=== PATIENT | female | born 1960 | race Two or more races ===

== ENCOUNTER 2022-12-27 13:44 | Outpatient (REF) | payer OTHER, SELFPAY ==
--- NOTE | ~2022-12-27 | MM_ITS ---
EXAMINATION: MM SCREENING DIGITAL BREAST TOMOSYNTHESIS, BILATERAL CLINICAL INFORMATION: Screening. Asymptomatic. The lifetime risk of breast cancer based on the Tyrer-Cuzick Model is 4%. COMPARISON: Mammography: 08/27/2020 from outside institution TECHNIQUE: Digital breast tomosynthesis is performed in both the craniocaudal and mediolateral oblique views along with computer-aided detection (CAD). Synthesized 2D images are generated from the tomosynthesis. FINDINGS: There are scattered areas of fibroglandular density (ACR BI-RADS breast composition Category b). There are no suspicious masses, suspicious grouped calcifications, or areas of architectural distortion in either breast. There is a stable intramammary lymph node in the upper outer right breast, mid depth. There is a stable intramammary lymph node in the upper outer left breast, mid depth. There are mild vascular calcifications. The overall parenchymal pattern is unchanged from prior exams. MM/MM tomosynthesis screening BI IMPRESSION: No mammographic evidence of malignancy. Stable benign findings. ASSESSMENT: BI-RADS BI-RADS 2 - Benign Findings RECOMMENDATION: Routine annual mammography screening. 1 year F/U This examination should not preclude the clinical evaluation of a suspicious palpable abnormality. This patient's information was entered into a reminder system with a target due date for their next mammogram.
== END 2022-12-27 13:45 | disposition home or self-care (01) ==
LOC: HO.MAMMO 13:44
PROVIDERS: PCP Family Medicine; Visit Provider Family Medicine
DX: Z12.31 Encounter for screening mammogram for malignant neoplasm of breast (principal)
CPT/HCPCS: 77063; 77067

== ENCOUNTER → 2022-12-27 14:00 | Outpatient (BNV) | payer OTHER, SELFPAY | PROVIDERS: PCP Family Medicine; Visit Provider Radiology Diagnostic Radiology | DX: Z12.31 Encounter for screening mammogram for malignant neoplasm of breast (principal) | CPT/HCPCS: 77063; 77067 ==

== ENCOUNTER 2023-01-02 10:24 | Outpatient (REF) | payer OTHER, SELFPAY ==
--- NOTE | ~2023-01-02 | US_ITS ---
EXAMINATION: US ABDOMEN COMPLETE CLINICAL INFORMATION: Right upper quadrant pain. COMPARISON: None available. TECHNIQUE: Real-time imaging of the abdominal viscera. Limited visualization due to bowel gas and body habitus. FINDINGS: PANCREAS: Limited visualization of pancreatic tail and head. Imaged portion of pancreatic body is unremarkable. ABDOMINAL AORTA: Nonaneurysmal. Limited visualization due to bowel gas. INFERIOR VENA CAVA: Visualized portions are normal. LIVER: Diffuse increase in echogenicity of the liver is characteristic of primary hepatocellular disease, possibly due to hepatic steatosis and further limits visualization. GALLBLADDER: Gallbladder wall appears borderline thickened and irregular, of indeterminate etiology, although adenomyomatosis could contribute to this appearance. No gallstones identified. COMMON BILE DUCT: Normal in caliber measuring 0.5 cm in diameter. RIGHT KIDNEY: No hydronephrosis. No renal calculi. Limited visualization. The kidney measures 11.3 cm in maximum dimension. LEFT KIDNEY: No hydronephrosis. No renal calculi. Limited visualization. The kidney measures 10.9 cm in maximum dimension. SPLEEN: Normal. The spleen measures 9.7 cm in maximum dimension. FREE FLUID: None. US/US abdomen complete IMPRESSION: 1. Gallbladder wall appears borderline thickened and irregular, of indeterminate etiology, although adenomyomatosis could contribute to this appearance. No gallstones identified. 2. Diffuse increase in echogenicity of the liver is characteristic of primary hepatocellular disease, possibly due to hepatic steatosis and further limits visualization.
== END 2023-01-02 10:25 | disposition home or self-care (01) ==
LOC: HO.US 10:24
PROVIDERS: PCP Family Medicine; Visit Provider Family Medicine
DX: R10.11 Right upper quadrant pain (principal)
CPT/HCPCS: 76700

== ENCOUNTER 2023-01-18 09:00 | Outpatient (AMB) | payer OTHER, SELFPAY ==
[2023-01-18 09:06] VITALS: BP 162/89; PULSE 89; BMI 31.9
--- NOTE | 2023-01-18 09:06 | A.OFFVIS_ITS ---
Intake Vital Signs 01/18/23 09:06 Height 5 ft 5 in Weight 192 lb BMI 31.9 BP 162/89 H Blood Pressure Location Rt brachial Position Sitting Pulse 89 Intake Visit Reasons: Thickening wall of gallbladder Intake Note: Patient referred for thickening of the gallbladder wall. Had US on 01-02-23. Denies constant pain. Director Of Optimization Required: No Accompanied by: Zoey Grimm daughter Allergies No Known Allergies Allergy (Verified 01/18/23 09:08) Medication List - Last Reconciled 01/18/23 by Juan Antonio Saavedra MD atorvastatin 40 mg PO DAILY fenofibrate nanocrystallized 48 mg PO DAILY lisinopril 20 mg PO DAILY HPI HPI Comments History of Present Illness Details Patient presents with her family member, the latter of whom also served as an microbiology technologist for evaluation of right upper quadrant abdominal symptoms. These symptoms have been for several months time, consistent of right upper quadrant pain after meals. Patient is unclear if they are brought on by any specific factors including fatty meals. Patient has had a colonoscopy approximately 2 years ago in [place] which she says was within normal limits. Patient has no other GI issues or complaints. She is tolerating her diet otherwise, and having normal bowel habits. She has never been jaundiced before. Chart was reviewed patient evaluated. No past abdominal surgery Sonogram of gallbladder; nonspecific findings [facility] Medical History (Updated 01/18/23 @ 09:10 by ROSA Mitchell) HTN (hypertension) Surgical History (Updated 01/18/23 @ 09:21 by Juan Antonio Saavedra MD) History of wisdom tooth extraction Social History (Updated 01/18/23 @ 09:11 by ROSA Mitchell) Alcohol intake: never Patient Tobacco Use Status: Never used Tobacco Physical Exam Vital Signs: Last Vital Signs Pulse 89 01/18/23 09:06 BP 162/89 H 01/18/23 09:06 BMI result Body Mass Index 31.9 Chest Other: Chest breath sounds bilaterally, HS 1 in 2 GI Other: Mildly corpulent abdomen. Soft, no obvious hernias of the groin or abdominal wall. Assessment & Plan Assessment & Plan (1) Biliary dyskinesia: Code(s): K82.8 - Other specified diseases of gallbladder Plan Because of the unclear nature of the patient's symptoms, current plan is to arrange for a stimulation HIDA scan to evaluate for biliary dyskinesia and direct further therapy based on these results. Orders: Orders NM hepatobiliary w pharm Today K82.8 - Other specified diseases of gallbladder Coding Level of Care Code New Pt Level 4 (38050) Diagnoses Biliary dyskinesia K82.8
== END 2023-01-18 09:43 | disposition home or self-care (01) ==
PROVIDERS: PCP Family Medicine; Referring Provider Family Medicine; Visit Provider Surgery
DX: K82.8 Other specified diseases of gallbladder (principal)
CPT/HCPCS: 99204

== ENCOUNTER → 2023-01-18 09:00 | Outpatient (BNVA) | payer OTHER, SELFPAY | PROVIDERS: PCP Family Medicine; Referring Provider Family Medicine; Visit Provider Surgery | DX: K82.8 Other specified diseases of gallbladder (principal) | CPT/HCPCS: 99202 ==

== ENCOUNTER 2023-02-02 10:44 | Outpatient (REF) | payer OTHER, SELFPAY ==
[2023-02-02 14:33] LABS: MANUAL DIFF FLAG NO
[2023-02-02 14:39] LABS: Basophils Absolute Auto 0.1 X10*3/uL (0.0-0.2); Basophils Percent Auto 1.1 % (0-2); Eosinophils Absolute Auto 0.1 X10*3/uL (0.0-0.4); Eosinophils Percent Auto 3.1 % (0-4); Hematocrit 39.5 % (37.0-47.0); Hemoglobin 13.3 g/dl (12.0-16.0); Imm Gran Abs Auto 0.01 X10*3/uL (0.00-0.03); Imm Gran Pct Auto 0.2 % (0.0-0.4); Lymphocytes Absolute Auto 1.8 X10*3/uL (1.2-4.9); Lymphocytes Percent Auto 40.5 % (20-40); Mean Corpuscular HGB Conc 33.7 g/dl (31.0-35.0); Mean Corpuscular Hemoglobin 29.2 pg (27.0-33.0); Mean Corpuscular Volume 86.6 fL (80.0-98.0); Mean Platelet Volume 11.3 fL (9.4-12.3); Monocytes Absolute Auto 0.4 X10*3/uL (0.1-1.2); Monocytes Percent Auto 7.7 % (2-11); Neutrophils Absolute Auto 2.1 x10*3/uL (2.0-8.3); Neutrophils Percent Auto 47.4 % (45-73); Platelet Count 330 X10*3/uL (160-400); Red Blood Count 4.56 X10*6/uL (4.20-5.50); Red Cell Distribution Width 13.2 % (11.0-16.0); White Blood Count 4.5 X10*3/uL (4.8-10.8)
[2023-02-02 15:15] LABS: Alanine Aminotransferase 17 U/L (0-31); Albumin Level 4.3 g/dL (3.5-5.0); Alkaline Phosphatase 87 U/L (39-117); Anion Gap 12 (12-20); Aspartate Amino Transferase 16 U/L (5-31); Bilirubin Total 0.7 mg/dL (0.0-1.0); Blood Urea Nitrogen 12 mg/dL (9-16); Carbon Dioxide 26 mmol/L (22-29); Chloride 108 mmol/L (96-108); Cholesterol 171 mg/dL (<200); Estimated Glomerular Filt Rate > 60; Glucose Fasting 105 mg/dL (60-99); HDL Cholesterol 36 mg/dL (>40); LDL Cholesterol Calculated 91 mg/dL (<100); Potassium 4.1 mmol/L (3.3-5.1); Sodium 142 mmol/L (135-145); Triglycerides 221 mg/dL (<150)
== END 2023-02-02 10:45 | disposition home or self-care (01) ==
LOC: HO.CHCLDS 10:44
PROVIDERS: Absent Provider Internal Medicine; Visit Provider Family Medicine
DX: E78.2 Mixed hyperlipidemia (principal)
CPT/HCPCS: 36415; 80053; 80061; 85025

== ENCOUNTER → 2023-02-06 10:55 | Outpatient (REF) | payer OTHER, SELFPAY ==
--- NOTE | ~2023-02-06 | NM_ITS ---
EXAMINATION: BILIARY TRACT IMAGING STUDY WITH CCK CLINICAL INFORMATION: Right upper quadrant abdominal pain. Suspected biliary dyskinesia. COMPARISON: Abdominal ultrasound done on 01/02/2023. TECHNIQUE: Serial gamma scintillation camera images were obtained over the abdomen for a total observation period of 60 minutes following the intravenous administration of 5 mCi Tc-99m mebrofenin. The radiotracer was injected through right antecubital superficial vein without complications. FINDINGS: There is good concentration of activity in the liver by 5 minutes post injection. Biliary activity is visualized by 12 minutes. The gallbladder is well visualized by 30 minutes. Small bowel is well visualized by 64 minutes. At 60 minutes post radiopharmaceutical injection, a 30-minute infusion of 1.78 micrograms Sincalide was then begun and an additional 40 minutes of images were obtained. There is good emptying of the gallbladder. By the end of the study there is good clearance of activity from the liver and visualization of diffuse small bowel activity. The calculated gallbladder ejection fraction is 84% (normal gallbladder ejection fraction is greater than 35%). NM/NM hepatobiliary w pharm IMPRESSION: Visualization of the gallbladder is evidence of a patent cystic duct and strong evidence against the diagnosis of acute cholecystitis. The common bile duct is patent. Gallbladder emptying and ejection fraction are normal. Liver function appears normal.
== END ==
LOC: HO.NUCMED 10:55
PROVIDERS: PCP Family Medicine; Visit Provider Surgery
DX: K82.8 Other specified diseases of gallbladder (principal)
CPT/HCPCS: 78227; A9537; J2805

== ENCOUNTER 2023-02-14 11:01 | Outpatient (AMB) | payer OTHER, SELFPAY ==
--- NOTE | 2023-02-14 11:02 | A.OFFVIS_ITS ---
Intake Vital Signs 02/14/23 11:05 Height 5 ft 5 in Weight 195 lb BMI 32.4 BP 169/84 H Blood Pressure Location Rt brachial Position Sitting Pulse 94 Intake Visit Reasons: HIDA scan results, following gallbladder Intake Note: Patient here to discuss HIDA scan results. Reports no changes with meds or medical hx since last visit. Group Activities Aide Required: No Accompanied by: Daughter Allergies No Known Allergies Allergy (Verified 02/14/23 11:07) HPI HPI Comments History of Present Illness Details Patient presents with her daughter. Results of HIDA scan were reviewed. No evidence of any biliary disease. Prior ultrasound was also nondiagnostic/negative. She still has intermittent epigastric/upper abdominal symptoms. PFSH Medical History HTN (hypertension) Surgical History History of wisdom tooth extraction Social History Alcohol intake: never Patient Tobacco Use Status: Never used Tobacco Physical Exam Vital Signs: Last Vital Signs Pulse 94 02/14/23 11:05 BP 169/84 H 02/14/23 11:05 BMI result Body Mass Index 32.4 GI Other: Abdomen soft, benign Assessment & Plan Assessment & Plan (1) Abdominal pain: Code(s): R10.9 - Unspecified abdominal pain Plan Patient has seen a celery stripper several years ago while in [place]. Because of the unclear nature of symptoms, and biliary disease being ruled out, current recommendation is to suggest GI consultation. Patient and daughter agree. Arrangements were made for this. Coding Level of Care Code Est Pt Level 3 (33759) Diagnoses Abdominal pain R10.9
[2023-02-14 11:05] VITALS: BP 169/84; PULSE 94; BMI 32.4
== END 2023-02-14 11:13 | disposition home or self-care (01) ==
PROVIDERS: PCP Family Medicine; Visit Provider Surgery
DX: R10.9 Unspecified abdominal pain (principal)
CPT/HCPCS: 99213

== ENCOUNTER → 2023-02-14 11:01 | Outpatient (BNVA) | payer OTHER, SELFPAY | PROVIDERS: PCP Family Medicine; Visit Provider Surgery | DX: R10.13 Epigastric pain (principal) | CPT/HCPCS: 99212 ==

== ENCOUNTER 2023-03-01 12:50 | Outpatient (REF) | payer OTHER, SELFPAY ==
[2023-03-01 14:47] LABS: Estimated Average Glucose 111 mg/dL; Hemoglobin A1C 107.7119 umol/L; Hemoglobin A1c % 5.5 % (<6.0)
[2023-03-01 15:06] LABS: Lipase 26 U/L (8-78)
[2023-03-07 10:34] LABS: Transglutaminase Ab IgG <1.0 U/mL; Transglutaminase IgA <1.0 U/mL
== END 2023-03-01 12:51 | disposition home or self-care (01) ==
LOC: HO.LAB 12:50
PROVIDERS: PCP Family Medicine; Referring Provider Surgery; Visit Provider Nurse Practitioner Family
DX: R10.11 Right upper quadrant pain (principal); E11.9 Type 2 diabetes mellitus without complications
CPT/HCPCS: 36415; 83036; 83690; 86364

== ENCOUNTER 2023-03-01 12:50 | Outpatient (AMB) | payer OTHER, SELFPAY ==
--- NOTE | 2023-03-01 13:07 | A.OFFVIS_ITS ---
Intake Vital Signs 03/01/23 13:11 Height 5 ft 5 in Weight 194 lb 0.108 oz BMI 32.3 Blood Pressure Location Lt brachial Position Sitting Intake Visit Reasons: Abdominal pain, dyspepsia Intake Note: Bella presents in the office as a new patient for abdominal pains and dyspepsia. CC: She states that she is no longer having pains in her stomach. She has a discomfort in the epigastric, RUQ but it is not often. No irreglar bowel movements. Agriculture Scientist Required: Yes Allergies No Known Allergies Allergy (Verified 03/01/23 13:11) HPI Abdominal pain, dyspepsia HPI Details 62-year-old female with past medical his tory hyperlipidemia, triglyceridemia is here today for initial consultation. Patient was sent to us by general surgeon for complaining of right upper quadrant discomfort. Patient was being evaluated for biliary dyskinesia. Normal functioning gallbladder found on HIDA scan. Patient has normal liver enzymes. Patient reports that her right upper quadrant pain is there occasionally. Patient states that the pain comes only. Not related to food. Patient reports that she feels like she moves her bowels, however she does not feel like she empties them completely. Frequent abdominal bloating postprandially. Patient had colonoscopy 2 years ago in [place]. Was told that she had polyps and need to return for colorectal screening in 5 years. Patient denies epigastric pain. No nausea or vomiting. Denies dyspepsia, dysphagia or odynophagia. Denies melena, hematochezia, unintentional weight loss or ribbon like stools. [facility] Medical History HTN (hypertension) Surgical History (Updated 03/01/23 @ 15:48 by Awa Talbot, [facility]) History of esophagogastroduodenoscopy (EGD) Hx of colonoscopy History of wisdom tooth extraction Social History Alcohol intake: never Patient Tobacco Use Status: Never used Tobacco Review of Systems Const Denies weight gain and Denies weight loss ENT Reports no additional complaints, Denies dysphagia and Denies odynophagia Card Reports no additional complaints Resp Reports no additional complaints GI Reports abdominal pain (RUQ), Denies belching, Denies melena, Reports bloating, Denies change in bowel habits, Reports constipation, Denies dysphagia, Denies excessive flatus, Denies dyspepsia, Denies heartburn, Denies diarrhea, Denies loose stools, Denies nausea, Denies odynophagia and Denies vomiting Reports no additional complaints Musc Reports no additional complaints Neuro Reports no additional complaints Psych Reports no additional complaints Endo Reports no additional complaints Physical Exam Vital Signs: BMI result Body Mass Index 32.3 Const General: healthy appearing, no acute distress and well developed Nutritional Appearance: obese Orientation/consciousness: patient oriented x3 HEENT Head: Yes normal to inspection, Yes normocephalic and Yes atraumatic Face and sinus: Yes normal facial exam Mouth: Normal oral and palatal mucosa present Throat: Yes posterior oropharynx normal, Yes tonsils normal and Yes uvula midline Eyes General: appearance normal, both eyes and all related structures Neck Neck: Yes normal visual inspection, Yes full ROM and Yes trachea midline Thyroid: Thyroid normal Resp Effort & Inspection: normal respiratory effort, able to speak in complete s entences, no tracheal deviation and symmetric chest movement Auscultation: clear to auscultation bilaterally Cardio Rate: regular rate Heart sounds: S1 normal heart sound present and S2 normal heart sound present GI Inspection: Yes normal to inspection, No distended and Yes obesity Palpation (GI): Soft to palpation, not firm, nontender and No hepatosplenomegaly present Auscultation: normal bowel sounds General: Yes no CVA tenderness Back/Spine/Pelvis Back: no CVA tenderness Skin General skin exam: elasticity normal, turgor normal and dry skin Neuro General: patient oriented x3 Psych Appearance: grossly normal Mental Status: mental status grossly normal Assessment & Plan Assessment & Plan (1) Abdominal pain: Code(s): R10.9 - Unspecified abdominal pain Qualifiers: Abdominal location: right upper quadrant Qualified Code(s): R10.11 - Right upper quadrant pain Plan: Patient had negative HIDA scan. Right upper quadrant pain not related to food. However patient does have a occasional postprandial abdominal bloating. Most likely gas trapping pain in hepatic flexure. Patient will need to move her bowels better. However will rule out celiac, pancreatitis. Will send her script for MiraLax and senna. I will see patient in the 6 weeks, sooner on as needed basis. Patient is agreeable to this plan and verbalizes understanding of instructions. She was given the opportunity to ask questions and all questions answered Thank you for allowing me to participate in her care Orders: Orders Transglutaminase Ab IgG Today R10.9 - Unspecified abdominal pain Transglutaminase IgA Today R10.9 - Unspecified abdominal pain Lipase Today R10.9 - Unspecified abdominal pain Hemoglobin A1c Today E11.9 - Type 2 diabetes mellitus without complications Medications: New sennosides (Natural Senna Laxative) 17.2 mg (2 x 8.6 mg) PO BEDTIME 60 tabs 3RF constipation K59.00 - Constipation, unspecified polyethylene glycol 3350 (Miralax) 17 grams PO DAILY 510 grams 2RF Coding Level of Care Code New Pt Level 3 (15222) Diagnoses Right upper quadrant abdominal pain R10.11 Abdominal location: right upper quadrant Time Spent (min) 40 Comment 30 minutes spent with patient and additional 10 minutes spent reviewing her records
[2023-03-01 13:11] VITALS: BMI 32.3
== END 2023-03-01 13:39 | disposition home or self-care (01) ==
PROVIDERS: PCP Family Medicine; Referring Provider Surgery; Visit Provider Nurse Practitioner Family
DX: R10.11 Right upper quadrant pain (principal)
CPT/HCPCS: 99203

== ENCOUNTER 2023-04-12 13:35 | Outpatient (AMB) | payer OTHER, SELFPAY ==
[2023-04-12 13:38] VITALS: BP 153/83; PULSE 107; O2SAT 96; BMI 32.4
--- NOTE | 2023-04-12 13:38 | A.OFFVIS_ITS ---
Intake Vital Signs 04/12/23 13:38 Height 5 ft 5 in Weight 194 lb 7.163 oz BMI 32.4 BP 153/83 H Blood Pressure Location Lt brachial Position Sitting Pulse 107 H Pulse Source Pulse Oximeter Pulse Oximetry (%) 96 Oxygen Delivery Method Room Air Intake Visit Reasons: 6 week follow up Intake Note: Pt presents to the office today for a 6 week follow up for abdominal pain. Pt states she is doing better on the medication. Pt states sometimes she will get gas pains but it has gotten better with the medication. Pt denies any N/V/D. Accompanied by: Child Allergies No Known Allergies Allergy (Verified 04/12/23 13:40) HPI 6 week follow up HPI Details Abdominal pain Patient had negative HIDA scan. Right upper quadrant pain not related to food. However patient does have a occasional postprandial abdominal bloating. Most likely gas trapping pain in hepatic flexure. Patient will need to move her bowels better. However will rule out celiac, pancreatitis. Will send her script for MiraLax and senna. I will see patient in the 6 weeks, sooner on as needed basis. Patient is agreeable to this plan and verbalizes understanding of instructions. She was given the opportunity to ask questions and all questions answered ? Thank you for allowing me to participate in her care Plan Orders Orders Transglutaminase Ab IgG Today R10.9 Transglutaminase IgA Today R10.9 Lipase Today R10.9 Hemoglobin A1c Today E11.9 Medications New sennosides (Natural Senna Laxative) 17.2 mg (2 x 8.6 mg) PO BEDTIME 60 tabs 3RF constipation K59.00 polyethylene glycol 3350 (Miralax) 17 grams PO DAILY 510 grams 2RF TODAY'S VISIT Patient is here today for follow-up and to discuss lab results the patient had normal lipase, transglutaminase. Her A1c was also normal. Patient reports that she has Senokot 2 tablets every evening and MiraLax in the morning. Patient states that she is moving her bowels well and her symptoms of right upper quadrant pain and abdominal discomfort and bloating have subsided. Patient reports that she no longer have pain or abdominal bloating. Patient states that she had colonoscopy and upper endoscopy in [place] she believes in a a 2018 and 2020. She believes that the she had colonoscopy in in November of 2020. Patient was told that she has polyps. Patient currently has not experience any acid reflux. Patient denies dyspepsia, dysphagia diarrhea nausea. Patient reports that he a well [facility] Medical History HTN (hypertension) Surgical History History of esophagogastroduodenoscopy (EGD) Hx of colonoscopy History of wisdom tooth extraction Social History Alcohol intake: never Patient Tobacco Use Status: Never used Tobacco Review of Systems Const Denies weight gain and Denies weight loss ENT Reports no additional complaints, Denies dysphagia and Denies odynophagia Card Reports no additional complaints Resp Reports no additional complaints GI Denies abdominal pain, Denies belching, Denies melena, Denies bloating, Denies change in bowel habits, Denies dysphagia, Denies excessive flatus, Denies dyspepsia, Denies heartburn, Denies diarrhea, Denies loose stools, Denies nausea, Denies odynophagia and Denies vomiting Musc Reports no additional complaints Neuro Reports no additional complaints Psych Reports no additional complaints Endo Reports no additional complaints Physical Exam Vital Signs: Last Vital Signs Pulse 107 H 04/12/23 13:38 BP 153/83 H 04/12/23 13:38 Pulse Ox 96 04/12/23 13:38 Oxygen Delivery Method Room Air 04/12/23 13:38 BMI result Body Mass Index 32.4 Const General: healthy appearing, no acute distress and well developed Nutritional Appearance: obese Orientation/consciousness: patient oriented x3 HEENT Head: Yes normal to inspection, Yes normocephalic and Yes atraumatic Face and sinus: Yes normal facial exam Mouth: Normal oral and palatal mucosa present Throat: Yes posterior oropharynx normal, Yes tonsils normal and Yes uvula midline Eyes General: appearance normal, both eyes and all related structures Neck Neck: Yes normal visual inspection, Yes full ROM and Yes trachea midline Thyroid: Thyroid normal Resp Effort & Inspection: normal respiratory effort, able to speak in complete sentences, no tracheal deviation and symmetric chest movement Auscultation: clear to auscultation bilaterally Cardio Rate: regular rate Heart sounds: S1 normal heart sound present and S2 normal heart sound present GI Inspection: Yes normal to inspection, No distended and Yes obesity Palpation (GI): Soft to palpation, not firm, nontender and No hepatosplenomegaly present Auscultation: normal bowel sounds General: Yes no CVA tenderness Back/Spine/Pelvis Back: no CVA tenderness Skin General skin exam: elasticity normal, turgor normal and dry skin Neuro General: patient oriented x3 Psych Appearance: grossly normal Mental Status: mental status grossly normal Speech and movement: Normal speech and movement present Assessment & Plan Assessment & Plan (1) Abdominal pain: Code(s): R10.9 - Unspecified abdominal pain Qualifiers: Abdominal location: right upper quadrant Qualified Code(s): R10.11 - Right upper quadrant pain (2) Chronic idiopathic constipation: Code(s): K59.04 - Chronic idiopathic constipation Plan Continue MiraLax and Senokot. Patient was also encouraged to increase fluid intake and activity to promote better bowel motility. Patient denies melena, hematochezia, unintentional weight loss or ribbon like stools. Patient denies any dyspepsia, dysphagia or odynophagia. Patient no longer experiences abdominal pain. Her symptoms most likely were related to gas trapping pain due to constipation. Patient will continue monitor and take medications as prescribed. Please call patient is PCP for GI records from [place] that will include endoscopy I and D colonoscopy. I will see patient in 6 months, sooner on as needed basis. Patient is agreeable to this plan and verbalizes understanding of instructions. She was given the opportunity to ask questions and all questions answered. Thank you for allowing me to participate in her care Coding Level of Care Code Est Pt Level 3 (04267) Diagnoses Right upper quadrant abdominal pain R10.11 Abdominal location: right upper quadrant Chronic idiopathic constipation K59.04 Time Spent (min) 25 Comment 15 minutes spent patient and additional 10 minutes spent reviewing her records
== END 2023-04-12 14:23 | disposition home or self-care (01) ==
PROVIDERS: PCP Family Medicine; Visit Provider Nurse Practitioner Family
DX: R10.11 Right upper quadrant pain (principal); K59.04 Chronic idiopathic constipation
CPT/HCPCS: 99213

== ENCOUNTER → 2023-04-12 13:35 | Outpatient (BNVA) | payer OTHER, SELFPAY | PROVIDERS: PCP Family Medicine; Visit Provider Nurse Practitioner Family | DX: R10.11 Right upper quadrant pain (principal); K59.04 Chronic idiopathic constipation; Z79.899 Other long term (current) drug therapy | CPT/HCPCS: 99212 ==

== ENCOUNTER 2023-07-19 08:25 | Outpatient (REF) | payer OTHER, SELFPAY ==
[2023-07-19 15:02] LABS: Cholesterol 170 mg/dL (<200); HDL Cholesterol 36 mg/dL (>40); LDL Cholesterol Calculated 99 mg/dL (<100); Triglycerides 175 mg/dL (<150)
== END 2023-07-19 08:26 | disposition home or self-care (01) ==
LOC: HO.CHCLDS 08:25
PROVIDERS: Visit Provider Family Medicine
DX: E78.2 Mixed hyperlipidemia (principal)
CPT/HCPCS: 36415; 80061

== ENCOUNTER 2023-09-05 13:34 | Outpatient (REF) | payer OTHER, SELFPAY ==
--- NOTE | ~2023-09-05 | XR_ITS ---
EXAMINATION: XR ELBOW, RIGHT CLINICAL INFORMATION: Epicondylar pain of greater than 4 weeks' duration. COMPARISON: None available. TECHNIQUE: AP, lateral, and oblique views of the right elbow. FINDINGS: Bony alignment and mineralization are normal. In the lateral elbow joint space, there are adjacent 5 mm and 2 mm ovoid osseous fragments, consistent with avulsion fragments or loose bodies. No obvious fracture donor site is noted. There is no dislocation. No significant joint effusion is seen. There is no foreign body. XR/XR elbow RT 2V IMPRESSION: 1. There are small osseous fragments in the lateral joint space, consistent with chronic avulsion fragment or loose bodies. 2. No joint effusion is noted.
--- NOTE | ~2023-09-05 | XR_ITS ---
EXAMINATION: XR FOOT, LEFT CLINICAL INFORMATION: Choking. COMPARISON: None available. TECHNIQUE: AP, lateral, and oblique views of the left foot. FINDINGS: Bony alignment and mineralization are normal. No fracture, dislocation or left ankle joint effusion is seen. Boehler's angle is normal. There are large posterior and moderate plantar calcaneal spurs. No unusual bone erosion is seen. There is no focal soft tissue swelling, gas or foreign body. XR/XR foot LT min 3V IMPRESSION: 1. No fracture, dislocation or left ankle joint effusion is seen. 2. There are large posterior and moderate plantar calcaneal spurs.
== END 2023-09-05 13:35 | disposition home or self-care (01) ==
LOC: HO.HHCX 13:34
PROVIDERS: Visit Provider Family Medicine
DX: M77.01 Medial epicondylitis, right elbow (principal); M79.675 Pain in left toe(s)
CPT/HCPCS: 73070; 73630

== ENCOUNTER 2023-09-27 14:16 | Outpatient (AMB) | payer OTHER, SELFPAY ==
--- NOTE | 2023-09-27 14:20 | MHC.OFFVIS ---
Vital Signs 09/27/23 14:27 Height 5 ft 5 in Weight 194 lb BMI 32.3 Intake Visit Reasons: N/P right elbow Medial epicondylitis Intake Note: Bella a 62 year old right hand dominant female who presents today as a new patient for an evaluation of right elbow pain. Patient reports on 07/24/23 she was walking her dog when the dog pulled on the leash. No previous tx. Currently her discomfort is located at the ulnar aspect of elbow, states at times she has a burning as well as a pulling sensation. Denies numbness or tingling. Allergies No Known Allergies Allergy (Verified 09/27/23 14:24) Medication List - Last Reconciled 09/27/23 by El Palmer PA-C atorvastatin 40 mg PO DAILY fenofibrate nanocrystallized 48 mg PO DAILY lisinopril 20 mg PO DAILY polyethylene glycol 3350 (Miralax) 17 grams PO DAILY sennosides (Natural Senna Laxative) 17.2 mg (2 x 8.6 mg) PO BEDTIME HPI HPI N/P right elbow Medial epicondylitis: Details: 62-year-old female who presents to the office today for evaluation of right elbow pain after she was walking her dog when the dog pulled on the leash, 07/24/23. She currently states she has discomfort at the ulnar aspect of her elbow. She also experiences a burning as well as a pulling sensation in her elbow. She denies any numbness, tingling, or giving out. She has not had any previous treatment. [facility] Medical History HTN (hypertension) Surgical History History of esophagogastroduodenoscopy (EGD) Hx of colonoscopy History of wisdom tooth extraction Social History (Updated 09/27/23 @ 14:25 by ROSA Leahy) Alcohol intake: never Patient Tobacco Use Status: Never used Tobacco Current occupation: right hand dominant Review of Systems Const All systems reviewed & are unremarkable except as noted in HPI and below Physical Exam Vital Signs: BMI result Body Mass Index 32.3 Const General: cooperative, healthy appearing, comfortable, no acute distress, well developed and alert Orientation/consciousness: patient oriented x3 HEENT Head: Yes normal to inspection, Yes normocephalic and Yes atraumatic Eyes General: appearance normal, both eyes and all related structures Resp Effort & Inspection: normal respiratory effort and able to speak in complete sentences Cardio Rate: regular rate Peripheral pulses: Peripheral pulses 2+ throughout GI Palpation (GI): Soft to palpation Skin Lesions: no lesions Rashes: no rashes Neuro General: patient oriented x3 Extrem Other: Right elbow: Normal to inspection. No swelling or abrasion. She has mild tenderness over the medial epicondyle. No pain with supination or pronation. No pain with flexion or extension of elbow. NVI. Office Procedures Fracture Care Fracture Billing Code: Fracture Billing Code Results Reviewed Results Reviewed: Right elbow xrays obtained on 09/05/23 IMPRESSION: 1. There are small osseous fragments in the lateral joint space, consistent with chronic avulsion fragment or loose bodies. 2. No joint effusion is noted. IMPRESSION: 1. There are small osseous fragments in the lateral joint space, consistent with chronic avulsion fragment or loose bodies. 2. No joint effusion is noted. Assessment & Plan Assessment & Plan (1) Avulsion fracture of medial epicondyle of humerus: Code(s): S42.443A - Displaced fracture (avulsion) of medial epicondyle of unspecified humerus, initial encounter for closed fracture Category: Medical Plan Based off x-ray findings and mechanism of injury I feel she has a collateral ligament sprain with evulsion fracture. She only has pain with resting her elbow on hard surface when she rests over the evulsion fragment. She will avoid these positions till she recovers for 6 weeks. She will increase activity as tolerated as experiences no instability and see me back if symptoms persist or worsen, otherwise as needed. Patient Instructions: Scribed for El Palmer PA-C, by Sameer Gomez anesthesiology medical doctor, on 09/27/2023 at 2:15 PM EST. IEl PA-C, have personally reviewed and agree with the information entered by the scribe.
[2023-09-27 14:27] VITALS: BMI 32.3
== END 2023-09-27 16:15 | disposition home or self-care (01) ==
PROVIDERS: PCP Family Medicine; Visit Provider Physician Assistant
DX: S42.441A Displaced fracture (avulsion) of medial epicondyle of right humerus, initial encounter for closed fracture (principal)
CPT/HCPCS: 99203

== ENCOUNTER → 2023-09-27 14:16 | Outpatient (BNVA) | payer OTHER, SELFPAY | PROVIDERS: PCP Family Medicine; Visit Provider Physician Assistant | DX: S42.441A Displaced fracture (avulsion) of medial epicondyle of right humerus, initial encounter for closed fracture (principal); X50.0XXA Overexertion from strenuous movement or load, initial encounter; Y93.K1 Activity, walking an animal; Y92.9 Unspecified place or not applicable; Y99.9 Unspecified external cause status | CPT/HCPCS: 99202 ==

== ENCOUNTER 2023-10-11 13:49 | Outpatient (AMB) | payer OTHER, SELFPAY ==
--- NOTE | 2023-10-11 13:58 | A.OFFVIS_ITS ---
Vital Signs 10/11/23 14:00 Height 5 ft 5 in Weight 193 lb BMI 32.1 BP 143/84 H Blood Pressure Location Lt brachial Position Sitting Pulse 88 Intake Visit Reasons: 6 month follow up Intake Note: Patient is seen in office for 6 month follow up visit. 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 Patient was also encouraged to increase fluid intake and activity to promote better bowel motility. Patient denies melena, hematochezia, unintentional weight loss or ribbon like stools. Patient denies any dyspepsia, dysphagia or odynophagia. Patient no longer experiences abdominal pain. Her symptoms most likely were related to gas trapping pain due to constipation. Patient will continue monitor and take medications as prescribed. Please call patient is PCP for GI records from [place] that will include endoscopy and colonoscopy. I will see patient in 6 months, sooner on as needed basis. Patient is agreeable to this plan and verbalizes understanding of instructions. She was given the opportunity to ask questions and all questions answered. TODAY'S VISIT Patient is here today for follow-up. Patient reports that she has been doing well. She is no longer taking MiraLax or senna. States that her bowels are moving fine. Denies any abdominal pain or discomfort. Denies any melena, hematochezia, unintentional weight loss or ribbon like stools. Patient had colonoscopy in [place] that show polyps and recommendation was made for patient to return in 4-5 years. Procedure was done 09/03/2020. Patient denies any dyspepsia, dysphagia or odynophagia. Denies any acid reflux [facility] Medical History HTN (hypertension) Surgical History History of esophagogastroduodenoscopy (EGD) Hx of colonoscopy History of wisdom tooth extraction Social History (Updated 09/27/23 @ 14:25 by ROSA Leahy) Alcohol intake: never Patient Tobacco Use Status: Never used Tobacco Current occupation: right hand dominant Review of Systems Const Denies weight gain and Denies weight loss ENT Reports no additional complaints, Denies dysphagia and Denies odynophagia Card Reports no additional complaints Resp Reports no additional complaints GI Denies abdominal pain, Denies belching, Denies melena, Denies bloating, Denies change in bowel habits, Denies dysphagia, Denies excessive flatus, Denies dyspepsia, Denies heartburn, Denies diarrhea, Denies loose stools, Denies nausea, Denies odynophagia and Denies vomiting Musc Reports no additional complaints Neuro Reports no additional complaints Psych Reports no additional complaints Endo Reports no additional complaints Physical Exam Vital Signs: Last Vital Signs Pulse 88 10/11/23 14:00 BP 143/84 H 10/11/23 14:00 BMI result Body Mass Index 32.1 Const General: healthy appearing and no acute distress Nutritional Appearance: obese Orientation/consciousness: patient oriented x3 Resp Effort & Inspection: normal respiratory effort, able to speak in complete sentences, no tracheal deviation and symmetric chest movement Auscultation: clear to auscultation bilaterally Cardio Rate: regular rate GI Inspection: Yes normal to inspection, No distended and Yes obesity Palpation (GI): Soft to palpation, not firm, nontender and No hepatosplenomegaly present Auscultation: normal bowel sounds General: Yes no CVA tenderness Back/Spine/Pelvis Back: no CVA tenderness Skin General skin exam: elasticity normal, turgor normal and dry skin Neuro General: patient oriented x3 Psych Appearance: grossly normal Mental Status: mental status grossly normal Assessment & Plan Assessment & Plan (1) Abdominal pain: Code(s): R10.9 - Unspecified abdominal pain Category: Surgical Qualifiers: Abdominal location: right upper quadrant Qualified Code(s): R10.11 - Right upper quadrant pain (2) Chronic idiopathic constipation: Code(s): K59.04 - Chronic idiopathic constipation Plan Continue avoiding dietary triggers. Increase fluid intake and activity to promote better bowel motility. May use MiraLax on as needed basis. Patient will return in 1 year to go for colonoscopy, sooner if clinically necessary. Patient is agreeable to this plan and verbalizes understanding of instructions she was given the opportunity to ask questions and all questions answered. Thank you for allowing me to participate in her care Coding Level of Care Code Est Pt Level 3 (58227) Diagnoses Right upper quadrant abdominal pain R10.11 Abdominal location: right upper quadrant Chronic idiopathic constipation K59.04 Time Spent (min) 25 Comment 15 minutes spent with patient and additional 10 minutes spent reviewing his records
[2023-10-11 14:00] VITALS: BP 143/84; PULSE 88; BMI 32.1
== END 2023-10-11 14:17 | disposition home or self-care (01) ==
PROVIDERS: PCP Family Medicine; Visit Provider Nurse Practitioner Family
DX: R10.11 Right upper quadrant pain (principal); K59.04 Chronic idiopathic constipation
CPT/HCPCS: 99213

== ENCOUNTER → 2023-10-11 13:49 | Outpatient (BNVA) | payer OTHER, SELFPAY | PROVIDERS: PCP Family Medicine; Visit Provider Nurse Practitioner Family | DX: R10.11 Right upper quadrant pain (principal); K59.04 Chronic idiopathic constipation | CPT/HCPCS: 99212 ==

== ENCOUNTER 2024-02-21 08:51 | Outpatient (REF) | payer OTHER, SELFPAY ==
[2024-02-21 13:47] LABS: MANUAL DIFF FLAG NO
[2024-02-21 14:01] LABS: Basophils Absolute Auto 0.1 X10*3/uL (0.0-0.2); Basophils Percent Auto 1.1 % (0-2); Eosinophils Absolute Auto 0.2 X10*3/uL (0.0-0.4); Eosinophils Percent Auto 3.6 % (0-4); Hematocrit 39.1 % (37.0-47.0); Hemoglobin 13.4 g/dl (12.0-16.0); Imm Gran Abs Auto 0.01 X10*3/uL (0.00-0.03); Imm Gran Pct Auto 0.2 % (0.0-0.4); Lymphocytes Absolute Auto 1.7 X10*3/uL (1.2-4.9); Lymphocytes Percent Auto 37.9 % (20-40); Mean Corpuscular HGB Conc 34.3 g/dl (31.0-35.0); Mean Corpuscular Hemoglobin 29.5 pg (27.0-33.0); Mean Corpuscular Volume 86.1 fL (80.0-98.0); Mean Platelet Volume 11.1 fL (9.4-12.3); Monocytes Absolute Auto 0.4 X10*3/uL (0.1-1.2); Monocytes Percent Auto 8.7 % (2-11); Neutrophils Absolute Auto 2.2 x10*3/uL (2.0-8.3); Neutrophils Percent Auto 48.5 % (45-73); Platelet Count 344 X10*3/uL (160-400); Red Blood Count 4.54 X10*6/uL (4.20-5.50); Red Cell Distribution Width 13.8 % (11.0-16.0); White Blood Count 4.5 X10*3/uL (4.8-10.8)
[2024-02-21 14:31] LABS: Alanine Aminotransferase 18 U/L (0-31); Albumin Level 4.3 g/dL (3.5-5.0); Alkaline Phosphatase 87 U/L (39-117); Anion Gap 12 (12-20); Aspartate Amino Transferase 18 U/L (5-31); Bilirubin Total 0.7 mg/dL (0.0-1.0); Blood Urea Nitrogen 12 mg/dL (9-16); Calcium 9.5 mg/dL (8.4-10.2); Carbon Dioxide 25 mmol/L (22-29); Chloride 109 mmol/L (96-108); Cholesterol 185 mg/dL (<200); Estimated Glomerular Filt Rate > 60; Glucose Random 110 mg/dL (60-115); HDL Cholesterol 37 mg/dL (>40); LDL Cholesterol Calculated 110 mg/dL (<100); Sodium 142 mmol/L (135-145); Total Protein 7.1 g/dL (6.5-8.0); Triglycerides 193 mg/dL (<150)
[2024-02-21 14:39] LABS: TSH reflex Free T4 1.28 uIU/mL (0.32-4.0)
== END 2024-02-21 08:52 | disposition home or self-care (01) ==
LOC: HO.CHCLDS 08:51
PROVIDERS: Visit Provider Family Medicine
DX: I10 Essential (primary) hypertension (principal)
CPT/HCPCS: 36415; 80053; 80061; 84443; 85025

== ENCOUNTER 2024-02-27 14:51 | Outpatient (REF) | payer OTHER, SELFPAY ==
[2024-02-29 07:02] LABS: C. trachomatis RNA TMA NOT DETECTED (NOT DETECTED); N. gonorrhoeae RNA TMA NOT DETECTED (NOT DETECTED); Trichomonas (NAAT) NOT DETECTED (NOT DETECTED)
[2024-03-01 11:28] LABS: HPV mRNA E6/E7 Not Detected (Not Detected)
== END 2024-02-27 14:52 | disposition home or self-care (01) ==
LOC: HO.CHCLNP 14:51
PROVIDERS: Visit Provider Family Medicine
DX: Z01.419 Encounter for gynecological examination (general) (routine) without abnormal findings (principal)
CPT/HCPCS: 36415; 87491; 87591; 87624; 87661; 88175

== ENCOUNTER 2024-03-12 09:06 | Outpatient (REF) | payer OTHER, SELFPAY ==
--- NOTE | 2024-03-12 09:17 | EMG_ITS ---
PROCEDURE: Right median and ulnar motor and sensory studies were performed. Right median and lateral antecubital brachial and radial sensory studies were performed, and needle examination was performed. IMPRESSION: Mild to moderate right ulnar neuropathy across cubital tunnel. MD ANH White/THAIS / [id number]
== END 2024-03-12 09:07 | disposition home or self-care (01) ==
LOC: HO.NEURO 09:06
PROVIDERS: PCP Family Medicine; Visit Provider Family Medicine
DX: G56.21 Lesion of ulnar nerve, right upper limb (principal); M77.01 Medial epicondylitis, right elbow
CPT/HCPCS: 95886; 95910

== ENCOUNTER 2024-10-16 12:48 | Outpatient (AMB) | payer MEDICARE, OTHER, SELFPAY ==
--- NOTE | 2024-10-16 13:01 | A.OFFVIS_ITS ---
Vital Signs 10/16/24 13:10 Height 5 ft 5 in Weight 194 lb BMI 32.3 BP 136/80 Blood Pressure Location Rt brachial Position Sitting Pulse 86 Pulse Source Pulse Oximeter Pulse Oximetry (%) 96 Oxygen Delivery Method Room Air Intake Visit Reasons: 1 year follow up discuss colo Intake Note: ESTABLISHED PATIENT for mgmt of dyspepsia and abd pain. Discuss colo Chief Complaint; Pt denies any GI sx or concerns at this time. Upper Doubler Required: Yes Upper Doubler Services: Upper Doubler Present Upper Doubler Name: Ramy [id number] + [facility] Accompanied by: Self / Same As Patient Allergies No Known Allergies Allergy (Verified 10/16/24 13:02) HPI HPI 1 year follow up discuss colo: Details: LAST VISIT Abdominal pain Chronic idiopathic constipation Plan Continue avoiding dietary triggers. Increase fluid intake and activity to promote better bowel motility. May use MiraLax on as needed basis. Patient will return in 1 year to go for colonoscopy, sooner if clinically necessary. Patient is agreeable to this plan and verbalizes understanding of instructions she was given the opportunity to ask questions and all questions answered. ? TODAY'S VISIT Patient is here today for follow-up and to discuss going for colonoscopy. Tevin vazquez denies any issues with anesthesia in the past. No history of sleep apnea. Patient reports that she is moving her bowels well and denies any GI concerning symptoms today. Patient denies any cardiac or respiratory symptoms. Patient denies any melena, hematochezia, unintentional weight loss or ribbon like stools. Patient denies any family history of CRC. Patient denies any dyspepsia, dysphagia or odynophagia. [facility] Medical History HTN (hypertension) Surgical History History of esophagogastroduodenoscopy (EGD) Hx of colonoscopy History of wisdom tooth extraction Social History Alcohol intake: never Patient Tobacco Use Status: Never used Tobacco Current occupation: right hand dominant Review of Systems Const Denies weight gain and Denies weight loss ENT Reports no additional complaints, Denies dysphagia and Denies odynophagia Card Reports no additional complaints Resp Reports no additional complaints GI Denies abdominal pain, Denies belching, Denies melena, Denies bloating, Denies change in bowel habits, Denies dysphagia, Denies excessive flatus, Denies dyspepsia, Denies heartburn, Denies diarrhea, Denies loose stools, Denies nausea, Denies odynophagia and Denies vomiting Musc Reports no additional complaints Neuro Reports no additional complaints Psych Reports no additional complaints Endo Reports no additional complaints Physical Exam Vital Signs: Last Vital Signs Pulse 86 10/16/24 13:10 BP 136/80 10/16/24 13:10 Pulse Ox 96 10/16/24 13:10 Oxygen Delivery Method Room Air 10/16/24 13:10 BMI result Body Mass Index 32.3 Const General: healthy appearing and no acute distress Nutritional Appearance: obese Orientation/consciousness: patient oriented x3 Resp Effort & Inspection: normal respiratory effort, able to speak in complete sentences, no tracheal deviation and symmetric chest movement Auscultation: clear to auscultation bilaterally Cardio Rate: regular rate GI Inspection: Yes normal to inspection, No distended and Yes obesity Palpation (GI): Soft to palpation, not firm, nontender and No hepatosplenomegaly present Auscultation: normal bowel sounds General: Yes no CVA tenderness Back/Spine/Pelvis Back: no CVA tenderness Skin General skin exam: elasticity normal, turgor normal and dry skin Neuro General: patient oriented x3 Psych Appearance: grossly normal Mental Status: mental status grossly normal Assessment & Plan Assessment & Plan (1) Abdominal pain: Code(s): R10.9 - Unspecified abdominal pain Category: Surgical Qualifiers: Abdominal location: right upper quadrant Qualified Code(s): R10.11 - Right upper quadrant pain (2) Chronic idiopathic constipation: Code(s): K59.04 - Chronic idiopathic constipation (3) Screen for colon cancer: Code(s): Z12.11 - Encounter for screening for malignant neoplasm of colon Plan Patient reports to be feeling well. Denies any abdominal pain or discomfort. Patient reports that she changed her diet. Drinks plenty fluids. Patient will be going to [place] in November. October schedule patient in December. Message sent to surgical schedulers to book procedure for patient. Patient denies any melena, hematochezia, unintentional weight loss or ribbon like stools. What to expect before during and after procedure discussed with patient. Stressed the importance of good bowel prep and clear liquid diet day before procedure. Patient will return to our office after the procedure, sooner on as needed basis. She is agreeable to this plan and verbalizes understanding of instructions. She was given the opportunity to ask questions and all questions answered. Thank you for allowing me to participate in her care Medications: New polyethylene glycol 3350 (Miralax) As directed by gastroenterology department at [facility] 238 grams PO ONCE 238 grams 0RF Z12.11 - Encounter for screening for malignant neoplasm of colon bisacodyl (Dulcolax (bisacodyl)) take 4 tabs at noon the day before your colonoscopy 20 mg (4 x 5 mg) PO ONCE 4 tabs 0RF 1 day Z12.11 - Encounter for screening for malignant neoplasm of colon Coding Level of Care Code Est Pt Level 3 (18638) Diagnoses Right upper quadrant abdominal pain R10.11 Abdominal location: right upper quadrant Chronic idiopathic constipation K59.04 Screen for colon cancer Z12.11 Time Spent (min) 30 Comment 20 minutes spent with patient and additional 10 minutes spent reviewing her records
[2024-10-16 13:10] VITALS: BP 136/80; PULSE 86; O2SAT 96; BMI 32.3
--- OUTSIDE RECORDS SUMMARY | 2024-10-16 13:51 | XMS_ITS | Clinical Summary ---
Author Organization [employer] Address [address] [place] [address] 7 [place] [address] Care Team Providers Care Laborer [facility] Name Role Phone Erica Poole MD Primary Care Provider [phone] Allergies No known active allergies Medications cetirizine (ZyrTEC) 10 MG tablet Take 1 tablet by mouth at bed time. 2 Active mupirocin (Bactroban) 2 % ointment Apply topically every 12 (twelve) hours. 2 Active triamcinolone (Kenalog) 0.1 % cream Apply topically at bed time. 2 Active hydroquinone 4 % cream 3 Active Zinc Oxide 9.38 % ointmentIndicat ions:Rash Apply 1 application topically if needed in the morning, at noon, in the evening, and at bedtime (rash). 500 g 3 Active Additional Information Patient not taking.Reported on 09/05/2024 senna (Senokot) 8.6 MG tablet 3 Active polyethylene glycol, PEG, 3350 (Glycolax) 17 GM/SCOOP powder 3 Active fenofibrate (Tricor) 48 MG tablet Take 1 tablet (48 mg) by mouth Once per day. 90 tablet 1 5 Active cyclobenzaprine (Flexeril) 10 MG tablet Take 1 tablet (10 mg) by mouth every 8 (eight) hours. 30 tablet 5 Active atorvastatin (Lipitor) 40 MG tablet Take 1 tablet (40 mg) by mouth Once per day. 90 tablet 1 5 Active lisinopril 20 MG tablet Take 1 tablet (20 mg) by mouth Once per day. 90 tablet 1 5 Active Active Problems Problem Noted Date Diagnosed Date Other specified noninflammatory disorders of cer vix uteri 02/27/2024 Assessment & Plan (02/27/2024 9:50 AM EDT): Visible strawberry cervix, ordering lab work for STI and prescribing Flagyl. Relevant Medications Metronidazole (Flagyl) 500 mg tablet Cervical cancer screening 02/27/2024 Assessment & Plan (02/27/2024 9:51 AM EDT): 63 y.o. here for cervical cancer screening. Will continue monitoring following ASCCP guidelines. Cubital tunnel syndrome on right 02/21/2024 Assessment & Plan (02/26/2024 10:41 PM EDT): Medical Necessity Statement for Cubital Tunnel Brace Reason for Brace: Bella Dorsey is diagnosed with cubital tunnel syndrome, a condition caused by compression of the ulnar nerve at the elbow. This compression can lead to pain, numbness, tingling, and weakness in the hand, particularly the ring and pinky fingers. A cubital tunnel brace is recommended to: Reduce ulnar nerve compression: By providing support and cushioning to the elbow, the brace helps to alleviate pressure on the ulnar nerve, reducing pain and discomfort. Improve range of motion: The brace can help to prevent the elbow from bending excessively, which can further aggravate the ulnar nerve. Prevent future exacerbations: By wearing the brace consistently, [Patient's Name] can help to prevent the condition from worsening and reduce the need for more invasive treatments. Expected Benefits: It is anticipated that the cubital tunnel brace will: Significantly reduce Bella Dorsey 's pain and discomfort associated with cubital tunnel syndrome. Improve Bella Mauricios range of motion and function. Prevent the progression of cubital tunnel syndrome and reduce the likelihood of future exacerbations. Alternative Treatments Considered: Alternative treatments, such as non-steroidal anti-inflammatory drugs (NSAIDs), physical therapy, and corticosteroid injections, were considered. However, Bella Dorsey has not experienced adequate relief from these interventions, and the cubital tunnel brace is deemed to be the most appropriate and effective treatment option at this time. Conclusion: Based on the patient's diagnosis and clinical presentation, a cubital tunnel brace is medically necessary to alleviate pain, improve function, and prevent the progression of cubital tunnel syndrome. Itching of ear 02/21/2024 Assessment & Plan (02/21/2024 11:15 AM EDT): Prescribing otic drops for ear Sx. Relevant Medication Acetic Acid-hydrocortisone (Vosol-HC) otic solution. Medial epicondylitis of elbow, right 08/30/2023 Assessment & Plan (02/21/2024 11:16 AM EDT): Referral to PT for continued treatment and ordering EMG for further evaluation. Assessment & Plan (08/31/2023 2:22 AM EDT): Referred to orthopaedic surgery and ordered an XR of elbow. Will F/U with results. Plan to get steroid injections or be referred to physical therapy by orthopaedic provider. Great toe pain, left 07/21/2023 Assessment & Plan (07/22/2023 3:08 AM EST): Xray referral for the left toe pain RUQ pain 12/05/2022 Assessment & Plan (12/05/2022 11:03 AM EDT): Patient with intermittent RUQ pain. Will send for abdominal ultrasound for further evaluation. White coat syndrome with diagnosis of hypertensi on 06/30/2022 Assessment & Plan (02/21/2024 11:14 AM EDT): BP is elevated, follow up in one week with BP home kit machine. Assessment & Plan (07/22/2023 3:05 AM EST): Patient is advised to keep daily log of her controlled blood pressure values and bring them in for the next follow up appointment in 3-4 months. Labs: CBC, Comprehensive Metabolic Panel, Lipid panel, TSH w/ reflex to FT4 Assessment & Plan (04/14/2023 2:33 PM EDT): Controlled: will not make any changes at this time. Advised to keep monitoring at home. Assessment & Plan (12/05/2022 11:01 AM EDT): Elevated reading at time of visit. Reports controlled readings at home, unavailable at time of visit. Likely white coat syndrome. Assessment & Plan (06/30/2022 5:55 PM EST): Reviewed BP cuff at home which is controlled. She didn't bring with her BP machine to assess white coat component. F/u 4 months Dyschromia 06/30/2022 Assessment & Plan (06/30/2022 5:54 PM EST): Requested referral to outside derm, referral placed Rash 06/30/2022 Assessment & Plan (12/05/2022 11:02 AM EDT): Will refill zinc oxide 9.38% ointment. Assessment & Plan (06/30/2022 5:54 PM EST): Report some skin breakage around her pannus, will send crm. Mixed hyperlipidemia 06/30/2022 Assessment & Plan (04/14/2023 2:33 PM EDT): -Will send labs: Lipid Panel. Assessment & Plan (12/05/2022 11:02 AM EDT): Will send lab to recheck levels. Class 1 obesity due to exces s calories with serious comorbidity and body mass index (BMI) of 32.0 to 32.9 in adult 06/30/2022 Encounters Date Type Department Care Team Description 09/05/2024 1:00 PM EDT Office Visit [facility] [address] [place] [address] Ivelisse Monge 09/03/2024 Refill [facility] [address] [place] [address] Erica Poole MD from Last 3 Months Immunizations Name Administration Dates Next Due Pfizer Covid-19 Vaccine 12+ 10/23/2020, Social History Tobacco Use Types Packs/Day Years Used Date Smoking Tobacco: Never Passive Smoke Exposure: Never Smokeless Tobacco: Never Tobacco Cessation:Counseling Given: Not Answered Alcohol Use Standard Drinks/Week Comments Never 0 (1 standard drink = 0.6 oz pur e alcohol) Depression Answer Date Recorded Patient Health Questionnaire-9 Score 0 07/21/2023 Patient Health Questionnaire-9 Score 0 07/21/2023 Last PHQ-9: Questionnaire Data Not on file 0 07/21/2023 Housing Stability Answer Date Recorded What is your housing situation today? I have marlin coombs 04/04/[address] you li ve. Do you have problems with any of the following? None of the above 04/04/2023 Food Insecurity Answer Date Recorded Within the past 12 months, y ou worried that your food would run out before you got money to buy more: Never True 04/04/2023 Within the past 12 months,th e food you bought just didn't last and you didn't have enough money to get more: Never True Transportation Answer Date Recorded In the past 12 months, has l ack of transportation kept you from medical appts, meetings, work or from getting things needed for daily living? No 04/04/2023 Utilities Answer Date Recorded In the past 12 months, has t he electric, gas, oil or water company threatened to shut off services in your home? No 04/04/2023 Depression Answer Date Recorded Patient Health Questionnaire-2 Score 0 07/21/2023 Comments Unknown Sex and Gender Information Value Date Recorded Sex Assigned at Female 04/11/2022 10:39 AM EDT Legal Sex Female 10:39 AM EDT Gender Identity Female 04/11/2022 10:39 AM EDT Sexual Orientation Choose not to disclose 2021 10:39 AM EDT Last Filed Vital Signs Vital Sign Reading Time Taken Comments Blood Pressure 126/82 09/05/2024 1:09 PM EDT Pulse 86 03/21/2024 2:35 PM EDT Temperature 36.8 ??C (98.2 ??F) 02/27/2024 8:58 AM ED T Respiratory Rate 16 03/08/2024 12:17 PM EDT Oxygen Saturation 99% 02/27/2024 8:58 AM EDT Inhaled Oxygen Concentration - - Weight 87.3 kg (192 lb 6.4 oz) 03/21/2024 2:34 P M EDT Height 164 cm (5' 4.57 ) 02/27/2024 8:58 AM EDT Body Mass Index 32.45 02/27/2024 8:58 AM EDT Plan of Treatment Health Maintenance Due Date Last Done Comments CT Colonography 1959 Dental X-Ray: Full Mouth 1960 FIT DNA/Cologuard 1960 FIT 1960 FOBT 1960 Sigmoidoscopy 1960 Alcohol/Substance Use Screening 1971 DTaP/Tdap/Td Vaccines (1 - Tdap) 10/02/1978 Pneumococcal Vaccine: 50+ Years (1 of 1 - PCV) 10/02/2009 Zoster Vaccines (1 of 2) 10/02/2009 SDOH Screening 07/12/2024 07/12/2023 Depression Screening 07/21/2024 07/21/2023, 07/21/19 24 Influenza Vaccine (#1) 2024 Postp oned from 02/11/2024 (Patient Refused) Mammogram 12/27/2024 12/27/2022 COVID-19 Vaccine ( season) 2025 06/10/2021, 10/23/2020, 09/30/2020 Postponed from 02/11/2024 (Patient Refused) Dental Oral Exam 03/09/2025 09/05/2024, , 02/21/2023 Dental Prophylaxis 03/09/2025 09/05/2024, 0 03/11/2024, 02/21/2023, Additional history exists Dental X-Ray: Bitewings 03/12/2025 03/11/2024, 02/21 Colonoscopy 09/03/2025 09/03/2020 Colorectal Cancer Screening 09/03/2025 Tobacco Screening 09/05/2025 09/05/2024 Lipid Panel 02/20/2029 02/21/2024, 02/0 12/2023, 02/02/2023, Additional history exists Cervical Cancer Screening 02/26/2029 HPV/Cotest 02/26/2029 02/27/2024 Pap Smear 02/26/2029 02/27/2024 RSV Patients and Patients Aged 60 years or older (1 - 1-dose 75+ series) 10/02/2034 Hepatitis C Screening Completed 07/23/2021 HIB Vaccines Aged Out No longer eligi ble based on patient's age to complete this topic HPV Vaccines Aged Out No longer eligi ble based on patient's age to complete this topic Hepatitis A Vaccines Aged Out No long er eligible based on patient's age to complete this topic Hepatitis B Vaccines Aged Out No long er eligible based on patient's age to complete this topic IPV Vaccines Aged Out No longer eligi ble based on patient's age to complete this topic Meningococcal Vaccine Aged Out No jordin jerardo eligible based on patient's age to complete this topic RSV under 20 months Aged Out No longe r eligible based on patient's age to complete this topic Rotavirus Vaccines Aged Out No longer eligible based on patient's age to complete this topic Procedures Procedure Name Priority Date/Time Associated Diagnosis Comments PERIODIC ORAL EVALUATION - ESTABLISHED PATIENT Routine 09/05/2024 1:00 PM EDT ORAL HYGIENE INSTRUCTIONS Routine 09/05/2024 1:00 PM EDT CASE PRESENTATION, DETAILED AND EXTENSIVE TREATMENT PLANNING Routine 09/05/2024 1:00 PM EDT PROPHYLAXIS - ADULT Routine 09/05/2024 1 :00 PM EDT BITEWINGS - 4 RADIOGRAPHIC IMAGES Routine 03/11/2024 2:00 PM EDT THINPREP IMAGING PAP AND HPV MRNA E6/E7 Routine 02/27/2024 9:36 AM EDT LIPID PANEL, STANDARD Routine 02/21/2024 8:53 AM EDT White coat syndrome with diagnosis of hypertension BI MAMMOGRAM SCREENING TOMOSYNTHESIS BILATERAL Routine 12/27/2022 2:06 PM EDT ZZZ HISTORICAL HEPATITIS C AB W/REFL TO HCV RNA, QN, PCR Routine 07/23/2021 9:06 AM EST HM COLONOSCOPY Routine 09/03/2020 from Last 3 Months or Most Recently Relevant to Health Maintenance Results * ThinPrep Imaging Pap and HPV mRNA E6/E7 (02/27/2024 9:36 AM EDT) HPV nRNA E6/E7 Not Detected Not Detected [facility] Comment:Methodology: Transcr iption-Mediated AmplificationThis assay detects E6/E7 viral messenger RNA (mRNA) from 14high-risk HPV types (16,18,31,33,35,39,45,51,52,56,58,59,66,68).Cervical sources are required for HPV testing.If a vaginal source from a patient who has had atotal hysterectomy with removal of cervix wassubmitted, please contact the testing laboratoryfor alternative testing options.For additional information, please refer tohttp://education.Partnered/faq/VKB912h7(This link if provided for information/educational purposes only.)THIS TEST WAS PERFORMED AT:[facility] [address] [id number] MASON MD SOURCE: SEE NOTE [facility] Comment:None given Report Status: [facility] Clinical Information: SEE NOTE [facility] Comment:None given LMP: SEE NOTE [facility] Comment:NONE GIVEN Prev. PAP: SEE NOTE [facility] Comment:NONE GIVEN Prev. BX: SEE NOTE [facility] Comment:NONE GIVEN Statement Of Adequacy: SEE NOTE [facility] Comment:Satisfactory for claudia luation.Endocervical/transformation zone component absent. General Categorization: [facility] Interpretation/Result: SEE NOTE [facility] Comment:Cytology Results: Ne gative for intraepitheliallesion or malignancy. Cytology Comment SEE NOTE [facility] Comment:This Pap test has be en evaluated with computerassisted technology. In Home Sales Representative: SEE NOTE [facility] Comment:SL CT(ASCP)[place] foote location: [place] [address] Review In Home Sales Representative: [facility] Pathologist [facility] PAP Infection [facility] See Note SEE NOTE [facility] Comment:EXPLANATORY NOTE:The Pap is a screening test for cervical cancer. It isnot a diagnostic test and is subject to false negativeand false positive results. It is most reliable when asatisfactory sample, regularly obtained, is submittedwith relevant clinical findings and history, and whenthe Pap result is evaluated along with historic andcurrent clinical information. 02/27/2024 9:36 AM EDT 02/27/2024 2:57 PM EDT Narrative [facility] - 03/05/2024 12:44 PM EDT SEE SCANNED RESULTS IN EMR us Erica Poole MD LAB PATHOLOGY ORDERABLES Vianey [place] Result [facility] [address] [place] [address] [phone] * (ABNORMAL) Lipid Panel, Standard (02/21/2024 8:53 AM EDT) Triglycerides 193(H) <150 mg/dL [facility] Comment:Desirable Triglyceri de: less than 150 mg/dLBorderline High Triglyceride 150-199 mg/dLHigh Triglyceride: 200-499 mg/dLVery High Triglyceride: greater than or equal to 5OO mg/dL Cholesterol 185 <200 mg/dL [facility] Comment:Desirable Cholestero l: less than 200 mg/dLBorderline High Cholesterol: 200-239 mg/dLHigh Cholesterol: greater than 239 mg/dL LDL Cholesterol Calculated 110(H) <100 mg/dL [facility] Comment:Desirable LDL: less than 100 mg/dLNear Optimal/Above Optimal LDL: 110- 129 mg/dLBorderline High LDL: 130-159 mg/dLHigh LDL: 160-189 mg/dLVery High LDL: greater than or equal to 190 mg/dL HDL Cholesterol 37(L) >40 mg/dL [facility] Comment:Desirable HDL: great er than 40 mg/dL Note: This HDL assay may give artificially low results in patients with liver disease. Blood Venous blood specimen / Unknown 02/21/2024 8:53 AM EDT 02/21/2024 1:46 PM EDT us Erica Poole MD LAB BLOOD ORDERABLES Final Re sult [facility] [address] [facility] [place] [address] [phone] * BI Mammogram Screening Tomosynthesis Bilateral (12/27/2022 2:06 PM EDT) Anatomical Region Laterality Modality Breast Bilateral Mammography 12/27/2022 2:06 PM EDT Narrative 01/23/2023 10:43 AM EDT ? [facility] [place] ? [address] ?[place] [address] ? Mammography Report ? Signed ? Patient: Kayy Dorseygina ?MR#: [id number] ?? [id number] ? : 1960 ?Acct:[id number] ? Age/Sex: 62 / F ?ADM Date: 12/27/22 ? Loc: HO.MAMMO ? Attending Dr: Erica Poole MD ? Ordering Physician: Erica Poole MD ?Results: ? Date of Service: 12/27/22 ?Follow Up: ? Procedure(s): MM tomosynthesis screening BI ?? Accession Number(s): [id number] ? cc: Erica Poole MD ? EXAMINATION: ?? MM SCREENING DIGITAL BREAST TOMOSYNTHESIS, BILATERAL ? CLINICAL INFORMATION: ? Screening. Asymptomatic. ? The lifetime risk of breast cancer based on the Tyrer-Cuzick Model is ?? 4%. ? COMPARISON: ?? Mammography: 08/27/2020 from outside institution ? TECHNIQUE: ?? Digital breast tomosynthesis is performed in both the craniocaudal and ?? mediolateral oblique views along with computer-aided detection (CAD). ?? Synthesized 2D images are generated from the tomosynthesis. ? FINDINGS: ?? There are scattered areas of fibroglandular density (ACR BI-RADS breast ?? composition Category b). ? There are no suspicious masses, suspicious grouped calcifications, or ?? areas of architectural distortion in either breast. There is a stable ?? intramammary lymph node in the upper outer right breast, mid depth. ?? There is a stable intramammary lymph node in the upper outer left ?? breast, mid depth. There are mild vascular calcifications. The overall ?? parenchymal pattern is unchanged from prior exams. ? MM/MM tomosynthesis screening BI ?? IMPRESSION: ?? No mammographic evidence of malignancy. Stable benign findings. ? ASSESSMENT: ? BI-RADS BI-RADS 2 - Benign Findings ? RECOMMENDATION: ?? Routine annual mammography screening. ? 1 year F/U ? This examination should not preclude the clinical evaluation of a ?? suspicious palpable abnormality. ? This patient's information was entered into a reminder system with a ?? target due date for their next mammogram. ? Dictated By: ?Lizandro Moreno MD ? Signed By: ?<Electronically signed by Lizandro Moreno MD in OV> ?01/23/23 1041 ? DD/ ? TD/TT: ? Nonprofit Director: ? Procedure Note Seven Yee - 01/23/2023 Félix [facility] [address] [place] [address] Mammography Report Signed Patient: Jose DorseyMis#: [id number] : 1960Acct:[id number] Age/Sex: 62 / FADM Date: 12/27/22 Loc: HO.MAMMO Attending Dr: Erica Poole MD Ordering Physician: [facility] Date of Service: 12/27/22Follow Up: Procedure(s): MM tomosynthesis screening BI Accession Number(s): [id number] cc: Erica Poole MD EXAMINATION: MM SCREENING DIGITAL BREAST TOMOSYNTHESIS, BILATERAL CLINICAL INFORMATION: Screening. Asymptomatic. The lifetime risk of breast cancer based on the Tyrer-Cuzick Model is 4%. COMPARISON: Mammography: 08/27/2020 from outside institution TECHNIQUE: Digital breast tomosynthesis is performed in both the craniocaudal and mediolateral oblique views along with computer-aided detection (CAD). Synthesized 2D images are generated from the tomosynthesis. FINDINGS: There are scattered areas of fibroglandular density (ACR BI-RADS breast composition Category b). There are no suspicious masses, suspicious grouped calcifications, or areas of architectural distortion in either breast. There is a stable intramammary lymph node in the upper outer right breast, mid depth. There is a stable intramammary lymph node in the upper outer left breast, mid depth. There are mild vascular calcifications. The overall parenchymal pattern is unchanged from prior exams. MM/MM tomosynthesis screening BI IMPRESSION: No mammographic evidence of malignancy. Stable benign findings. ASSESSMENT: BI-RADS BI-RADS 2 - Benign Findings RECOMMENDATION: Routine annual mammography screening. 1 year F/U This examination should not preclude the clinical evaluation of a suspicious palpable abnormality. This patient's information was entered into a reminder system with a target due date for their next mammogram. Dictated By: Lizandro Moreno MD Signed By: <Electronically signed by Lizandro Moreno MD in OV> 01/23/23 1041 DD/ 1406 TD/TT: Nonprofit Director: us Erica Poole MD IMG BI PROCEDURES Final Resul t * HEPATITIS C AB W/REFL TO HCV RNA, QN, PCR (07/23/2021 9:06 AM EST) HEPATITIS C ANTIBODY NON-REACT [facility] NON-REACT [facility] INDEX 0.01 <1.00 [facility] Comment: ?? HCV antibody was non-reactive. There is no laboratory ?? evidence of HCV infection. ?? In most cases, no further action is required. However, if recent HCV exposure is suspected, a test for HCV RNA (test code 71784) is suggested. ?? For additional information please refer to http://[employer].Partnered/faq/FWD83t3 (This link is being provided for informational/ educational purposes only.) ?? 07/23/2021 9:06 AM EST Erica Poole MD HISTORICAL/NON ORDERABLE LABS Final Result [facility] [address] [place] [address], * (ABNORMAL) Colonoscopy (09/03/2020) [facility] Signature Colonoscopy Abnormal(A ) Normal Narrative David Wattba - 09/03/2020 Right colonic diverticulosis, multiple colonic polyps. Rpt colonoscopy in 5 yrs Historical Provider HEALTH MAINTENANCE Edited Result - Final from Last 3 Months or Most Recently Relevant to Health Maintenance Insurance MEDICARE ADVANTAGE HMO DENTAL - HSN PARTIAL (MEDICAID) [facility] Care Teams Laborer [facility] Relationship Specialty Start Date End Date Erica Poole MD [address] [place] [phone] PCP - General Family Medicine 06/07/21 LUCIANA NealP-[address] [id number] Nurse Practitioner Gastroenterology 02/10/23
--- OUTSIDE RECORDS SUMMARY | 2024-10-16 13:51 | XMS_ITS | Encounter Summary ---
Author Organization [facility] Address [address] [place] [address] [address] [place] [address] Care Team Providers Care Engineering Writer Name Role Phone Erica Poole MD Primary Care Provider Encounter Details Date Type Department Care Team (Latest Contact Info) Description 09/10/2021 Abstract [facility] CONVERSIONS Dental, Provider, DDS Social History Tobacco Use Types Packs/Day Years Used Date Smoking Tobacco: Never Assessed Comments Unknown Sex and Gender Information Value Date Recorded Sex Assigned at Female 04/11/2022 10:39 AM EDT Legal Sex Female 10:39 AM EDT Gender Identity Female 04/11/2022 10:39 AM EDT Sexual Orientation Choose not to disclose 2021 10:39 AM EDT documented as of this encounter Plan of Treatment Not on file documented as of this encounter Visit Diagnoses Not on filedocumented in this encounter Care Teams Engineering Writer Relationship Specialty Start Date End Date Erica Poole MD [address] [place] [phone] PCP - General Family Medicine 06/07/21 ROULA Neal-[address] [address] Nurse Practitioner Gastroenterology 02/10/23 documented as of this encounter
--- OUTSIDE RECORDS SUMMARY | 2024-10-16 13:51 | XMS_ITS | Encounter Summary ---
Author Organization [employer] Address [address] [place] [address] Care Team Providers Care Rn Imcu Name Role Phone Erica Poole MD Primary Care Provider [phone] Encounter Details Date Type Department Care Team (Late st Contact Info) Description 04/27/2023 Abstract [facility] [address] [place] [address] Erica Poole MD [address] [place] [address] Social History Tobacco Use Types Packs/Day Years Used Date Smoking Tobacco: Never Passive Smoke Exposure: Never Smokeless Tobacco: Never Alcohol Use Standard Drinks/Week Comments Never 0 (1 standard drink = 0.6 oz pur e alcohol) Depression Answer Date Recorded Patient Health Questionnaire-9 Score 0 06/30/2022 Housing Stability Answer Date Recorded What is your housing situation today? I have marlin corin 04/04/[address] you li [...] Date Recorded Patient Health Questionnaire-2 Score 0 06/30/2022 Comments Unknown Sex and Gender Information Value [...] Diagnoses Not on filedocumented in this encounter Additional Health Concerns Assessment Noted Time PHQ-9 Depression Total Score: 0 06/30/19 23 3:11 PM EST documented as of this encounter Care Teams Rn Imcu Relationship Specialty Start Date End Date Erica Poole MD [address] [place] [phone] PCP - General Family Medicine 06/07/21 ROULA Neal-[address] [address] Nurse Practitioner Gastroenterology 02/10/23 documented as of this encounter
--- OUTSIDE RECORDS SUMMARY | 2024-10-16 13:51 | XMS_ITS | Encounter Summary ---
Author Organization [email or web address] Address [address] [facility] 7t [place] [address] Care Team Providers Care Line Puller Name Role Phone Erica Poole MD Primary Care Provider [phone] Reason for Visit * Reason Comments Med Refill Encounter Details Date Type Department Care Team ([facility] Contact Info) Description 07/09/2024 Refill [facility] & PEDS [address] [place] [address] Erica Poole MD [address] [place] [address] Social History Tobacco Use Types Packs/Day Years [...] is your housing situation today? I have marlinsanta coombs 04/04/[address] you [...] Noted Time PHQ-9 Depression Total Score: 0 07/21/19 24 2:48 PM EST documented as of this encounter Care Teams Line Puller Relationship Specialty Start Date End Date Erica Poole MD [address] [place] [address] PCP - General Family Medicine 06/07/[address] [address] Nurse Practitioner Gastroenterology 02/10/23 documented as of this encounter
== END 2024-10-16 13:57 | disposition home or self-care (01) ==
LOC: HO.HGI 12:49
PROVIDERS: PCP Family Medicine; Visit Provider Nurse Practitioner Family
DX: Z01.818 Encounter for other preprocedural examination (principal); Z12.11 Encounter for screening for malignant neoplasm of colon
CPT/HCPCS: 99024

== ENCOUNTER → 2024-10-16 12:48 | Outpatient (BNVA) | payer MEDICARE, OTHER, SELFPAY | PROVIDERS: PCP Family Medicine; Visit Provider Nurse Practitioner Family | DX: Z01.818 Encounter for other preprocedural examination (principal); K59.04 Chronic idiopathic constipation; R10.11 Right upper quadrant pain | CPT/HCPCS: 99212 ==

== ENCOUNTER 2024-10-17 12:19 | Outpatient (REF) | payer MEDICARE, OTHER, SELFPAY ==
--- OUTSIDE RECORDS SUMMARY | 2024-10-17 13:38 | XMS_ITS | Clinical Summary ---
Author Organization [employer] Address [address] [place] [address] 7 [place] [address] Care Team Providers Care Precision Lathe Operator Name Role Phone Erica Poole MD Primary Care Provider [phone] Allergies No known active allergies Medications cetirizine [...] Description 09/05/2024 1:00 PM EDT Office Visit [facility] [address] [place] [address] Ivelisse Monge 09/03/2024 Refill [facility] [address] [place] [address] Erica Poole MD from Last 3 Months [...] HPV nRNA E6/E7 Not Detected Not Detected [facility] Comment:Methodology: Transcr iption-Mediated AmplificationThis assay detects E6/E7 viral messenger RNA (mRNA) from 14high-risk HPV types (16,18,31,33,35,39,45,51,52,56,58,59,66,68).Cervical sources are required for HPV testing.If a vaginal source from a patient who has had atotal hysterectomy with removal of cervix wassubmitted, please contact the testing laboratoryfor alternative testing options.For additional information, please refer tohttp://education.[employer]/faq/XBM409l8(This link if provided for information/educational purposes only.)THIS TEST WAS PERFORMED AT:[facility] [address] [id number] MASON MD SOURCE: SEE NOTE [facility] Comment:None given Report Status: [facility] Clinical Information: SEE NOTE [facility] Comment:None given LMP: SEE NOTE [facility] Comment:NONE GIVEN Prev. PAP: SEE NOTE [facility] Comment:NONE GIVEN Prev. BX: SEE NOTE [facility] Comment:NONE GIVEN Statement Of Adequacy: SEE NOTE [facility] Comment:Satisfactory for claudia luation.Endocervical/transformation zone component absent. General Categorization: [facility] Interpretation/Result: SEE NOTE [facility] Comment:Cytology Results: Ne gative for intraepitheliallesion or malignancy. Cytology Comment SEE NOTE [facility] Comment:This Pap test has be en evaluated with computerassisted technology. Scheduling Representative: SEE NOTE [facility] Comment:SL CT(ASCP)[place] foote location: [place] [address] Review Scheduling Representative: [facility] Pathologist [facility] PAP Infection [facility] See Note SEE NOTE [facility] Comment:EXPLANATORY NOTE:The Pap is a screening test for cervical cancer. It isnot a diagnostic test and is subject to false negativeand false positive results. It is most reliable when asatisfactory sample, regularly obtained, is submittedwith relevant clinical findings and history, and whenthe Pap result is evaluated along with historic andcurrent clinical information. 02/27/2024 9:36 AM EDT 02/27/2024 2:57 PM EDT Narrative [facility] - 03/05/2024 12:44 PM EDT SEE SCANNED RESULTS IN EMR us Erica Poole MD LAB PATHOLOGY ORDERABLES Vianey bradshaw Result [facility] [address] [place] [address] [phone] * (ABNORMAL) Lipid Panel, Standard (02/21/2024 8:53 AM EDT) Triglycerides 193(H) <150 mg/dL [facility] Comment:Desirable Triglyceri de: less than 150 mg/dLBorderline High Triglyceride 150-199 mg/dLHigh Triglyceride: 200-499 mg/dLVery High Triglyceride: greater than or equal to 5OO mg/dL Cholesterol 185 <200 mg/dL [facility] Comment:Desirable Cholestero l: less than 200 mg/dLBorderline High Cholesterol: 200-239 mg/dLHigh Cholesterol: greater than 239 mg/dL LDL Cholesterol Calculated 110(H) <100 mg/dL [facility] Comment:Desirable LDL: less than 100 mg/dLNear Optimal/Above Optimal LDL: 110- 129 mg/dLBorderline High LDL: 130-159 mg/dLHigh LDL: 160-189 mg/dLVery High LDL: greater than or equal to 190 mg/dL HDL Cholesterol 37(L) >40 mg/dL [facility] Comment:Desirable HDL: great er than 40 mg/dL Note: This HDL assay may give artificially low results in patients with liver disease. Blood Venous blood specimen / Unknown 02/21/2024 8:53 AM EDT 02/21/2024 1:46 PM EDT us Erica Poole MD LAB BLOOD ORDERABLES Final Re sult [facility] [address] [facility] [place] [address] [phone] * BI Mammogram Screening Tomosynthesis Bilateral (12/27/2022 2:06 PM EDT) Anatomical Region Laterality Modality Breast Bilateral Mammography 12/27/2022 2:06 PM EDT Narrative 01/23/2023 10:43 AM EDT ? [facility] ? [address] ?[place] [address] ? Mammography Report ? Signed ? Patient: Kayy Dorseygina ?MR#: [id number] ?? [id number] ? : 1960 ?Acct:[id number] ? Age/Sex: 62 / F ?ADM Date: 12/27/22 ? Loc: HO.MAMMO ? Attending Dr: Erica Poole MD ? Ordering Physician: Erica Poole MD ?Results: ? Date of Service: 12/27/22 ?Follow Up: ? Procedure(s): MM tomosynthesis screening BI ?? Accession Number(s): [id number] ? cc: Erica Poole MD ? EXAMINATION: [...] ?01/23/23 1041 ? DD/ ? TD/TT: ? Real Estate Management Specialist: ? Procedure Note Seven Yee - 01/23/2023 F[facility] [address] [place] [address] Mammography Report Signed Patient: Jose DorseyMis#: [id number] : 1960Acct:[id number] Age/Sex: 62 / FADM Date: 12/27/22 Loc: HO.MAMMO Attending Dr: Erica Poole MD Ordering Physician: Erica Poole [facility]: Date of Service: 12/27/22Follow Up: Procedure(s): MM tomosynthesis screening BI Accession Number(s): [id number] cc: Erica Poole MD EXAMINATION: MM SCREENING [...] in OV> 01/23/23 1041 DD/ 1406 TD/TT: Real Estate Management Specialist: us Erica Poole MD IMG BI PROCEDURES Final Resul t * HEPATITIS C AB W/REFL TO HCV RNA, QN, PCR (07/23/2021 9:06 AM EST) HEPATITIS C ANTIBODY NON-REACT [facility] NON-REACT [facility] INDEX 0.01 <1.00 [facility] Comment: ?? HCV antibody was non-reactive. There is no laboratory ?? evidence of HCV infection. ?? In most cases, no further action is required. However, if recent HCV exposure is suspected, a test for HCV RNA (test code 80472) is suggested. ?? For additional information please refer to http://[employer]/faq/THJ06t2 (This link is being provided for informational/ educational purposes only.) ?? 07/23/2021 9:06 AM EST Erica Poole MD HISTORICAL/NON ORDERABLE LABS Final Result [facility] [address] [place] [address], * (ABNORMAL) Colonoscopy (09/03/2020) [facility] Signature Colonoscopy Abnormal(A ) Normal Narrative David Wattba - 09/03/2020 Right colonic diverticulosis, multiple colonic polyps. Rpt colonoscopy in 5 yrs Historical Provider HEALTH MAINTENANCE Edited Result - Final from Last 3 Months or Most Recently Relevant to Health Maintenance Insurance MEDICARE ADVANTAGE HMO DENTAL - HSN PARTIAL (MEDICAID) [facility] Care Teams Precision Lathe Operator Relationship Specialty Start Date End Date Erica Poole MD [address] [place] [address] PCP - General Family Medicine 06/07/21 LUCIANA NealP-[address] [phone] Nurse Practitioner Gastroenterology 02/10/23
--- OUTSIDE RECORDS SUMMARY | 2024-10-17 13:38 | XMS_ITS | Encounter Summary ---
Author Organization [employer] Address [address] [facility] [address] 7t [place] [address] Care Team Providers Care Support Services Specialist Name Role Phone Erica Poole MD Primary Care Provider [phone] Encounter Details Date Type Department Care Team (Late st Contact Info) Description 04/27/2023 Abstract [facility] [address] [place] [address] Erica Poole MD [address] [place] [address] Social History Tobacco Use Types Packs/Day Years [...] documented as of this encounter Care Teams Support Services Specialist Relationship Specialty Start Date End Date Erica Poole MD [address] [place] [address] PCP - General Family Medicine 06/07/21 ROULA Neal-[address] [address] Nurse Practitioner Gastroenterology 02/10/23 documented as of this encounter
--- OUTSIDE RECORDS SUMMARY | 2024-10-17 13:38 | XMS_ITS | Encounter Summary ---
Author Organization [employer] Address [address] [facility] 7t [place] [address] Care Team Providers Care Post Partum Nurse Name Role Phone Erica Poole MD Primary Care Provider [phone] Reason for Visit * Reason Comments Med Refill Encounter Details Date Type Department Care Team ([facility] Contact Info) Description 07/09/2024 Refill [facility] & PEDS [address] [place] [address] Erica Poole MD [address] [place] [address] Social History Tobacco Use Types Packs/Day Years [...] documented as of this encounter Care Teams Post Partum Nurse Relationship Specialty Start Date End Date Erica Poole MD [address] [place] [address] PCP - General Family Medicine 06/07/[address] [address] Nurse Practitioner Gastroenterology 02/10/23 documented as of this encounter
--- OUTSIDE RECORDS SUMMARY | 2024-10-17 13:38 | XMS_ITS | Encounter Summary ---
Author Organization [facility] Address [address] [place] [address] 7t [place] [address] Care Team Providers Care Engineer Name Role Phone Erica Poole MD Primary Care Provider [phone] Encounter Details Date Type Department Care Team [...] on filedocumented in this encounter Care Teams Engineer Relationship Specialty Start Date End Date Erica Poole MD [address] [place] [address] PCP - General Family Medicine 06/07/21 ROULA Neal-[address] [address] Nurse Practitioner Gastroenterology 02/10/23 documented as of this encounter
== END 2024-10-17 12:20 | disposition home or self-care (01) ==
LOC: HO.MAMMO 12:19
PROVIDERS: PCP Family Medicine; Visit Provider Family Medicine
DX: Z12.31 Encounter for screening mammogram for malignant neoplasm of breast (principal)
CPT/HCPCS: 77063; 77067

== ENCOUNTER → 2024-10-17 12:30 | Outpatient (BNV) | payer MEDICARE, SELFPAY | PROVIDERS: PCP Family Medicine; Visit Provider Internal Medicine | DX: Z12.31 Encounter for screening mammogram for malignant neoplasm of breast (principal) | CPT/HCPCS: 77063; 77067 ==

== ENCOUNTER 2024-12-26 14:51 | Outpatient (AMB) | payer MEDICARE, SELFPAY ==
[2024-12-26 15:10] VITALS: BMI 32.3
--- NOTE | 2024-12-26 15:10 | MHC.OFFVIS ---
Vital Signs 12/26/24 15:10 Height 5 ft 5 in Weight 194 lb BMI 32.3 Intake Visit Reasons: New problem right hand CTS & RF trig Intake Note: Bella is a 64 year old right hand dominant female who presents today for a new problem visit for her right hand carpal tunnel and middle finger triggering. States she is having numbness and tingling in her index, thumb and her middle finger is locking. States CTS is on and off throught out the day and worsens at night time. EMG done 9 months ago. Allergies No Known Allergies Allergy (Verified 12/26/24 15:24) Medication List - Last Reconciled 12/26/24 by El Palmer PA-C atorvastatin 40 mg PO DAILY bisacodyl (Dulcolax (bisacodyl)) 20 mg (4 x 5 mg) PO ONCE 1 day fenofibrate nanocrystallized 48 mg PO DAILY lisinopril 20 mg PO DAILY polyethylene glycol 3350 (Miralax) 238 grams PO ONCE HPI HPI New problem right hand CTS & RF trig: Details: 64-year-old female returns to the office today for complaints of right hand numbness and tingling. She also complains of right ring finger triggering. She states the symptoms have been present for approximately 8-9 months. She does have a history of a injury to the right elbow in July of last year which resulted in a ligament strain. She states the numbness is worse at night and she needs to shake her hands in the morning to relieve these symptoms. She did have an EMG nerve conduction study which was significant for cubital tunnel syndrome. [facility] Medical History HTN (hypertension) Surgical History History of esophagogastroduodenoscopy (EGD) Hx of colonoscopy History of wisdom tooth extraction Social History Alcohol intake: never Patient Tobacco Use Status: Never used Tobacco Current occupation: right hand dominant Review of Systems Const All systems reviewed & are unremarkable except as noted in HPI and below Physical Exam Vital Signs: BMI result Body Mass Index 32.3 Const General: cooperative and no acute distress Orientation/consciousness: patient oriented x3 Resp Effort & Inspection: normal respiratory effort and able to speak in complete sentences Cardio Peripheral pulses: Peripheral pulses 2+ throughout Neuro General: patient oriented x3 Extrem Other: Right wrist and elbow normal to inspection. Mild Tenderness over the medial aspect of the elbow and Positive tinels along the cubital tunnel. She has good ROM of the elbow, no pain with supination or pronation. Negative tinels along the carpal tunnel. Positive Tinel's over the cubital tunnel. Numbness and tingling over the ulnar nerve distribution of the right hand. Able to make a full fist and fully extend all fingers. Results Reviewed Results Reviewed: Assessment & Plan Assessment & Plan (1) Cubital tunnel syndrome on right: Code(s): G56.21 - Lesion of ulnar nerve, right upper limb Category: Medical Plan: I discussed with the patient the extent of her EMG findings and along with her clinical symptoms I encouraged her to make an appointment with Dr. Davis to discuss further whether she would benefit from surgical or conservative intervention. I explained to the patient surgical intervention would be a decompression over the cubital tunnel. Patient is wondering if physical therapy would be an option. I explained to the patient given her symptoms have been longer than 3 months and there is evidence on EMG she may benefit more from surgery to prevent permanent nerve damage. The patient does express understanding and will make an appointment with Dr. Davis. Coding Level of Care Code Est Pt Level 3 (07261) Complex EM visit Add On G2211 Diagnoses Cubital tunnel syndrome on right G56.
== END 2024-12-26 15:30 | disposition home or self-care (01) ==
LOC: HO.HOS 14:52
PROVIDERS: PCP Family Medicine; Visit Provider Physician Assistant
DX: G56.21 Lesion of ulnar nerve, right upper limb (principal)
CPT/HCPCS: 99213; G2211

== ENCOUNTER → 2024-12-26 14:51 | Outpatient (BNVA) | payer MEDICARE, SELFPAY | PROVIDERS: PCP Family Medicine; Visit Provider Physician Assistant | DX: G56.21 Lesion of ulnar nerve, right upper limb (principal); M65.341 Trigger finger, right ring finger | CPT/HCPCS: 99212 ==

== ENCOUNTER 2025-02-14 09:42 | Outpatient (REF) | payer MEDICARE, SELFPAY ==
--- OUTSIDE RECORDS SUMMARY | 2023-11-04 05:00 | XMS_ITS ---
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 Name Role Phone Kasandra Kirkland Unavailable Unavailable Migration, Provider Unavailable Unavailable REASON FOR VISIT EMR-Francisco Encounters Encounter Location Date Provider Diagnosis [facility] [address] [place] [address] 11/04/2023 Provider Migration Plan Of Treatment Medication Medication Name Sig Start Date Stop Date Notes Claritin 10 MG Tablet Claritin Dispense: 30 tablet(s) - take 1 tablet (10 mg) by oral route once daily Oral as directed 04/28/2020 07/02/2020 Lipitor 40 MG Tablet Lipitor Dispense: 3 0 tablet(s) - take 1 tablet (40 mg) by oral route once daily Refill: 3 Oral Use as directed 11/10/2016 01/23/2017 Discontinued Reason:MI Zocor 20 MG Tablet Zocor Dispense: 30 tablet(s) - take 1 tablet (20 mg) by oral route once daily in the evening Refill: 3 Oral Use as directed 10/02/2017 01/11/2018 Discontinued Reason:S Lopid 600 MG Tablet Lopid Dispense: 60 tab(s) - 1 tablet by Oral route 2 times per day Refill: 4 Oral Use as directed 08/05/2016 01/23/2017 Discontinued Reason:MI Genesee-3 1000 MG Capsule omega-3 fatty ac ids Dispense: 1 Bottle - 1 Capsule by Oral route 3 times per day Refill: 3 Oral Use as directed 01/30/2019 05/07/2019 Discontinued Notes: Medication Renewed Calcium 600 + Minerals 600-200 MG-UNIT Tablet 1 tablet po once a day Oral once a day 04/28/2020 07/02/2020 hydroCHLOROthiazide 12.5 MG Tablet 1 tablet po once a day Oral once a day 04/28/2020 07/02/2020 Cyclobenzaprine HCl 10 MG Tablet cyclobenzaprine Dispense: 60 tab(s) - take 1 tablet (10 mg) by oral route 2 times per day PRN Refill: 3 Oral as directed 01/24/2020 07/02/2020 Lipitor 20 MG Tablet 1 tablet po once a day Oral once a day 04/28/2020 07/02/2020 Lisinopril 10 MG Tablet 1 tablet po once a day Oral once a day 01/24/2020 07/02/2020 Discontinued. Diclofenac Sodium 75 MG Tablet Delayed Release diclofenac sodium Dispense: 60 tab(s) - 1 tablet by Oral route 2 times per day Refill: 3 Oral Use as directed 01/30/2019 05/07/2019 Discontinued Notes: Medication Renewed Fenofibrate 160 MG Tablet fenofibrate Di spense: 30 tablet(s) - take 1 tablet (160 mg) by oral route once daily Refill: 3 Oral Use as directed 05/07/2019 07/02/2020 Lisinopril 20 MG Tablet 1 tablet po qd Oral 04/28/2020 Alendronate Sodium 35 MG Tablet 1 tablet po once a week Oral once a week 04/28/2020 07/02/2020 Losartan Potassium 25 MG Tablet once a day Oral once a day 09/10/2019 01/24/2020 Pt refused medication Triamcinolone Acetonide 0.1 % Cream triamcinolone acetonide Dispense: 1 Tube - Use 1 Aretha by Topical route 2 times per day PRN Refill: 1 External Use as directed 01/11/2018 07/02/2020 Diclofenac Potassium 50 MG Tablet diclofenac potassium Dispense: 60 tab(s) - 1 tablet by Oral route 2 times per day Refill: 3 Oral as directed 04/28/2020 07/02/2020 Progress Notes * Bella DE PAZ :1960 (64 yo F)Acc No.[id number]:11/04/2023 Patient: Alicia Bella CURRY :1960 A ge:63 Y S ex:Female Address:[address] [place] [address], [place], [address] * Refills Stop Alendronate Sodium Tablet, 35 MG, Oral, 5, alendronate Dispense: 5 Tablet - take 1 tablet (35 mg) by oral route once weekly in the morning, at least 30 min before first food, beverage, or medication of day Refill: 3, Use as directed Stop Alendronate Sodium Tablet, 35 MG, Oral, 5, alendronate Dispense: 5 Tablet - take 1 tablet (35 mg) by oral route once weekly in the morning, at least 30 min before first food, beverage, or medication of day Refill: 3, Use as directed Stop Calcium 600 + Minerals Tablet, 600-200 MG-UNIT, Oral, 60, Calcium 600 + D(3) Dispense: 60 tab(s) - 1 tablet by Oral route 2 times per day Refill: 3, Use as directed Stop Calcium 600 + Minerals Tablet, 600-200 MG-UNIT, Oral, 60, Calcium 600 + D(3) Dispense: 60 tab(s) - 1 tablet by Oral route 2 times per day Refill: 3, Use as directed Stop hydroCHLOROthiazide Tablet, 12.5 MG, Oral, 30, once a day, once a day Stop Genesee-3 Capsule, 1000 MG, Oral, 1, omega-3 fatty acids Dispense: 1 Bottle - 1 Capsule by Oral route 3 times per day Refill: 3, Use as directed Stop Genesee-3 Capsule, 1000 MG, Oral, 1, omega-3 fatty acids Dispense: 1 Bottle - 1 Capsule by Oral route 3 times per day Refill: 3, Use as directed Stop Alendronate Sodium Tablet, 35 MG, Oral, 5, alendronate Dispense: 5 Tablet - take 1 tablet (35 mg) by oral route once weekly in the morning, at least 30 min before first food, beverage, or medication of day Refill: 3, Use as directed Stop Calcium 600 + Minerals Tablet, 600-200 MG-UNIT, Oral, 60, Calcium 600 + D(3) Dispense: 60 tab(s) - 1 tablet by Oral route 2 times per day Refill: 3, Use as directed Stop Calcium 600 + Minerals Tablet, 600-200 MG-UNIT, Oral, 60, Calcium 600 + D(3) Dispense: 60 tab(s) - 1 tablet by Oral route 2 times per day Refill: 3, Use as directed Stop Claritin Tablet, 10 MG, Oral, 30, Claritin Dispense: 30 tablet(s) - take 1 tablet (10 mg) by oral route once daily Refill: 2, Use as directed Stop Claritin Tablet, 10 MG, Oral, 30, Claritin Dispense: 30 tablet(s) - take 1 tablet (10 mg) by oral route once daily, as directed Stop Diclofenac Potassium Tablet, 50 MG, Oral, 60, Cataflam Dispense: 60 tab(s) - 1 tablet by Oral route 2 times per day Refill: 3, Use as directed Stop Diclofenac Sodium Tablet Delayed Release, 75 MG, Oral, 60, diclofenac sodium Dispense: 60 tab(s) - 1 tablet by Oral route 2 times per day Refill: 3, Use as directed Stop hydroCHLOROthiazide Tablet, 12.5 MG, Oral, 30, 1 tablet po once a day, once a day Stop Lipitor Tablet, 20 MG, Oral, 30, Lipitor Dispense: 30 tablet(s) - take 1 tablet (20 mg) by oral route once daily Refill: 3, Use as directed Stop Lipitor Tablet, 20 MG, Oral, 30, Lipitor Dispense: 30 tablet(s) - take 1 tablet (20 mg) by oral route once daily Refill: 3, Use as directed Stop Alendronate Sodium Tablet, 35 MG, Oral, 4, 1 tablet po once a week, once a week Stop Calcium 600 + Minerals Tablet, 600-200 MG-UNIT, Oral, 60, Calcium 600 + D(3) Dispense: 60 tab(s) - 1 tablet by Oral route 2 times per day Refill: 4, Use as directed Stop Cyclobenzaprine HCl Tablet, 10 MG, Oral, 60, cyclobenzaprine Dispense: 60 tab(s) - take 1 tablet (10 mg) by oral route 2 times per day PRN Refill: 3, Use as directed Stop Cyclobenzaprine HCl Tablet, 10 MG, Oral, 60, cyclobenzaprine Dispense: 60 tab(s) - take 1 tablet (10 mg) by oral route 2 times per day PRN Refill: 3, Use as directed Stop Cyclobenzaprine HCl Tablet, 10 MG, Oral, 60, cyclobenzaprine Dispense: 60 tab(s) - take 1 tablet (10 mg) by oral route 2 times per day PRN Refill: 3, as directed Stop Lipitor Tablet, 40 MG, Oral, 30, Lipitor Dispense: 30 tablet(s) - take 1 tablet (40 mg) by oral route once daily Refill: 3, Use as directed Stop Lipitor Tablet, 20 MG, Oral, 30, Lipitor Dispense: 30 tablet(s) - take 1 tablet (20 mg) by oral route once daily Refill: 3, Use as directed Stop Genesee-3 Capsule, 1000 MG, Oral, 1, omega-3 fatty acids Dispense: 1 Bottle - 1 Capsule by Oral route 3 times per day Refill: 3, Use as directed Stop Cyclobenzaprine HCl Tablet, 10 MG, Oral, 60, cyclobenzaprine Dispense: 60 tab(s) - take 1 tablet (10 mg) by oral route 2 times per day PRN Refill: 3, Use as directed Stop Diclofenac Potassium Tablet, 50 MG, Oral, 60, diclofenac potassium Dispense: 60 tab(s) - 1 tablet by Oral route 2 times per day Refill: 3, Use as directed Stop Diclofenac Potassium Tablet, 50 MG, Oral, 60, diclofenac potassium Dispense: 60 tab(s) - 1 tablet by Oral route 2 times per day Refill: 3, as directed Stop Fenofibrate Tablet, 160 MG, Oral, 30, fenofibrate Dispense: 30 tablet(s) - take 1 tablet (160 mg) by oral route once daily Refill: 3, Use as directed Stop Calcium 600 + Minerals Tablet, 600-200 MG-UNIT, Oral, 60, Calcium 600 + D(3) Dispense: 60 tab(s) - 1 tablet by Oral route 2 times per day Refill: 3, Use as directed Stop Cyclobenzaprine HCl Tablet, 10 MG, Oral, 60, cyclobenzaprine Dispense: 60 tab(s) - take 1 tablet (10 mg) by oral route 2 times per day PRN Refill: 3, Use as directed Stop Diclofenac Potassium Tablet, 50 MG, Oral, 60, diclofenac potassium Dispense: 60 tab(s) - 1 tablet by Oral route 2 times per day Refill: 3, as directed Stop Fenofibrate Tablet, 160 MG, Oral, 30, fenofibrate Dispense: 30 tablet(s) - take 1 tablet (160 mg) by oral route once daily Refill: 3, Use as directed Stop Lisinopril Tablet, 20 MG, Oral, 30, 1 tablet po qd Stop Losartan Potassium Tablet, 25 MG, Oral, 30, once a day, once a day Stop Genesee-3 Capsule, 1000 MG, Oral, 1, omega-3 fatty acids Dispense: 1 Bottle - 1 Capsule by Oral route 3 times per day Refill: 3, Use as directed Stop Alendronate Sodium Tablet, 35 MG, Oral, 5, alendronate Dispense: 5 Tablet - take 1 tablet (35 mg) by oral route once weekly in the morning, at least 30 min before first food, beverage, or medication of day Refill: 3, Use as directed Stop Alendronate Sodium Tablet, 35 MG, Oral, 4, 1 tablet po once a week, once a week Stop Diclofenac Potassium Tablet, 50 MG, Oral, 60, diclofenac potassium Dispense: 60 tab(s) - 1 tablet by Oral route 2 times per day Refill: 3, Use as directed Stop Lipitor Tablet, 20 MG, Oral, 30, 1 tablet po once a day, once a day Stop Lipitor Tablet, 20 MG, Oral, 30, 1 tablet po once a day, once a day Stop Lisinopril Tablet, 10 MG, Oral, 30, 1 tablet po once a day, once a day Stop Zocor Tablet, 20 MG, Oral, 30, Zocor Dispense: 30 tablet(s) - take 1 tablet (20 mg) by oral route once daily in the evening Refill: 3, Use as directed Stop Alendronate Sodium Tablet, 35 MG, Oral, 4, once a week, once a week Stop Calcium 600 + Minerals Tablet, 600-200 MG-UNIT, Oral, 60, Calcium 600 + D(3) Dispense: 60 tab(s) - 1 tablet by Oral route 2 times per day Refill: 3, Use as directed Stop Cyclobenzaprine HCl Tablet, 10 MG, Oral, 60, cyclobenzaprine Dispense: 60 tab(s) - take 1 tablet (10 mg) by oral route 2 times per day PRN Refill: 3, Use as directed Stop Fenofibrate Tablet, 160 MG, Oral, 30, fenofibrate Dispense: 30 tablet(s) - take 1 tablet (160 mg) by oral route once daily Refill: 3, Use as directed Stop Lipitor Tablet, 40 MG, Oral, 30, Lipitor Dispense: 30 tablet(s) - take 1 tablet (40 mg) by oral route once daily Refill: 3, Use as directed Stop Lipitor Tablet, 20 MG, Oral, 30, Lipitor Dispense: 30 tablet(s) - take 1 tablet (20 mg) by oral route once daily Refill: 3, Use as directed Stop Lipitor Tablet, 20 MG, Oral, 30, once a day, once a day Stop Lopid Tablet, 600 MG, Oral, 60, Lopid Dispense: 60 tab(s) - 1 tablet by Oral route 2 times per day Refill: 4, Use as directed Stop Genesee-3 Capsule, 1000 MG, Oral, 1, omega-3 fatty acids Dispense: 1 Bottle - 1 Capsule by Oral route 3 times per day Refill: 3, Use as directed Stop Triamcinolone Acetonide Cream, 0.1 %, External, 1, triamcinolone acetonide Dispense: 1 Tube - Use 1 Aretha by Topical route 2 times per day PRN Refill: 1, Use as directed Stop Zocor Tablet, 20 MG, Oral, 30, Zocor Dispense: 30 tablet(s) - take 1 tablet (20 mg) by oral route once daily in the evening Refill: 3, Use as directed Stop Alendronate Sodium Tablet, 35 MG, Oral, 5, alendronate Dispense: 5 Tablet - take 1 tablet (35 mg) by oral route once weekly in the morning, at least 30 min before first food, beverage, or medication of day Refill: 3, Use as directed Stop Alendronate Sodium Tablet, 35 MG, Oral, 4, once a week, once a week Stop Calcium 600 + Minerals Tablet, 600-200 MG-UNIT, Oral, 60, once a day, once a day Stop Calcium 600 + Minerals Tablet, 600-200 MG-UNIT, Oral, 60, 1 tablet po once a day, once a day Stop Claritin Tablet, 10 MG, Oral, 30, Claritin Dispense: 30 tablet(s) - take 1 tablet (10 mg) by oral route once daily, as directed Stop Lipitor Tablet, 20 MG, Oral, 30, once a day, once a day Stop Losartan Potassium Tablet, 25 MG, Oral, 30, once a day, once a day Subjective: * Chief Complaints: * E -Francisco * * Date:
--- OUTSIDE RECORDS SUMMARY | 2023-11-05 05:00 | XMS_ITS ---
Author Organization [facility] [place] Address [address] [place] [address] Care Team Providers Care Linux Administrator Name Role Phone Kasandra Kirkland Unavailable Unavailable Migration, Provider Unavailable Unavailable Allergies No Known Allergies REASON FOR VISIT EMR-Francisco Medications Medication SIG (Take, Route, Frequency, Duration) Notes Start Date End Date Status Acyclovir 5 % Ointment acyclovir Dispens e: 1 Tube - 1 aretha by Topical route 5 times per day for 7 day(s) Refill: 0 External Use as directed Medication Inactivated on 07/18/2017 9:18:00 AM 07/12/2017 Active hydroCHLOROthiazide 12.5 MG Tablet once a day Oral once a day 09/10/2019 Active Cyclobenzaprine HCl 10 MG Tablet cyclobenzaprine Dispense: 60 tab(s) - take 1 tablet (10 mg) by oral route 2 times per day PRN Refill: 3 Oral as directed 07/02/2020 Active Acyclovir 800 MG Tablet acyclovir Dispen se: 1 Tablet - by Oral route 1 time per day Refill: 0 Oral Use as directed 07/12/2017 Active Diclofenac Potassium 50 MG Tablet diclofenac potassium Dispense: 60 tab(s) - 1 tablet by Oral route 2 times per day Refill: 3 Oral as directed 07/02/2020 Active Diclofenac Sodium 75 MG Tablet Delayed Release diclofenac sodium Dispense: 60 tab(s) - 1 tablet by Oral route 2 times per day Refill: 3 Oral Use as directed 05/07/2019 Active Silvadene 1 % Cream Silvadene Dispense: 50 gram(s) - 1 aretha by Topical route 2 times per day Refill: 0 External Use as directed 10/10/2018 Active Calcium 600 + Minerals 600-200 MG-UNIT Tablet 1 tablet po once a day Oral once a day 07/02/2020 Active Alendronate Sodium 35 MG Tablet 1 tablet po once a week Oral once a week 07/02/2020 Active Lisinopril 20 MG Tablet 1 tablet po qd Oral 2020 Active Clotrimazole-Betamethaso ne 1-0.05 % Cream Lotrisone Dispense: 45 gram(s) - 1 aretha by Topical route 2 times per day for 10 day(s) Refill: 0 External Use as directed Medication Inactivated on 02/09/2019 3:36:00 PM 01/30/2019 Active Claritin 10 MG Tablet Claritin Dispense: 30 tablet(s) - take 1 tablet (10 mg) by oral route once daily Oral as directed 07/02/2020 Active Triamcinolone Acetonide 0.1 % Cream triamcinolone acetonide Dispense: 1 Tube - Use 1 Aretha by Topical route 2 times per day PRN Refill: 1 External as directed 07/02/2020 Active Fenofibrate 160 MG Tablet fenofibrate Dispense: 30 tablet(s) - take 1 tablet (160 mg) by oral route once daily Refill: 3 Oral as directed 07/02/2020 Active Vistaril 25 MG Capsule Vistaril Dispense : 60 cap(s) - 1 capsule by Oral route 4 times per day PRN Oral Use as directed 10/02/2017 Active Verona-3 1000 MG Capsule omega-3 fatty ac ids Dispense: 1 Bottle - 1 Capsule by Oral route 3 times per day Refill: 3 Oral Use as directed 05/07/2019 Active Lipitor 20 MG Tablet 1 tablet po once a day Oral once a day 07/02/2020 Active Fluticasone Propionate 50 MCG/ACT Suspension fluticasone propionate Dispense: 1 Bottle - inhale 2 sprays (100 mcg) in each nostril by intranasal route once daily Refill: 0 Nasal Use as directed 05/07/2019 Active Zithromax 500 MG Tablet Zithromax Dispen se: 5 tab(s) - 1 tablet by Oral route 1 time per day for 5 day(s) Refill: 0 Oral Use as directed Medication Inactivated on 05/12/2019 8:39:00 AM 05/07/2019 Active Social History Social History Additional Details Category Social Info Options Details Migrated Social History Migrated Social History daily coffee consumption was three cups per day, good exercise habits, no caffeine use, caffeine use, never smoked, not using alcohol, not using drugs, daily coffee consumption was one cups per day, smoking status Encounters Encounter [facility] Date Provider [facility] [address] [place] [address] 11/05/2023 Provider Migration Plan Of Treatment No Information Progress Notes * KENRICKBella EPPERSON :1960 (64 yo F)Acc No.[id number]:11/05/2023 Patient: Alicia MEAD Bella MORRIS :1960 A ge:63 Y S ex:Female Address:[facility] [id number], [place], [facility] Subjective: * Chief Complaints: * E MR-Francisco * Social History: M igrated Social History: M igrated Social History: daily coffee consumption was three cups per day, g ood exercise habits, n o caffeine use, c affeine use, n ever smoked, n ot using alcohol, n ot using drugs, d aily coffee consumption was one cups per day, s moking status. * Medications: T akingTriamcinolone Acetonide 0.1 % Cream triamcinolone acetonide Dispense: 1 Tube - Use 1 Aretha by Topical route 2 times per day PRN Refill: 1 External as directed Acyclovir 5 % Ointment acyclovir Dispense: 1 Tube - 1 aretha by Topical route 5 times per day for 7 day(s) Refill: 0 External Use as directed , Notes to Pharmacist: Medication Inactivated on 07/18/2017 9:18:00 AMDiclofenac Sodium 75 MG Tablet Delayed Release diclofenac sodium Dispense: 60 tab(s) - 1 tablet by Oral route 2 times per day Refill: 3 Oral Use as directed Silvadene 1 % Cream Silvadene Dispense: 50 gram(s) - 1 aretha by Topical route 2 times per day Refill: 0 External Use as directed Lisinopril 20 MG Tablet 1 tablet po qd Oral Diclofenac Potassium 50 MG Tablet diclofenac potassium Dispense: 60 tab(s) - 1 tablet by Oral route 2 times per day Refill: 3 Oral as directed hydroCHLOROthiazide 12.5 MG Tablet once a day Oral once a day Cyclobenzaprine HCl 10 MG Tablet cyclobenzaprine Dispense: 60 tab(s) - take 1 tablet (10 mg) by oral route 2 times per day PRN Refill: 3 Oral as directed hydroCHLOROthiazide 12.5 MG Tablet 1 tablet po once a day Oral once a day Verona- 3 1000 MG Capsule omega-3 fatty acids Dispense: 1 Bottle - 1 Capsule by Oral route 3 times per day Refill: 3 Oral Use as directed Vistaril 25 MG Capsule Vistaril Dispense: 60 cap(s) - 1 capsule by Oral route 4 times per day PRN Oral Use as directed Fenofibrate 160 MG Tablet fenofibrate Dispense: 30 tablet(s) - take 1 tablet (160 mg) by oral route once daily Refill: 3 Oral as directed Alendronate Sodium 35 MG Tablet 1 tablet po once a week Oral once a week Claritin 10 MG Tablet Claritin Dispense: 30 tablet(s) - take 1 tablet (10 mg) by oral route once daily Oral as directed Calcium 600 + Minerals 600-200 MG-UNIT Tablet 1 tablet po once a day Oral once a day Clotrimazole-Betamethasone 1-0.05 % Cream Lotrisone Dispense: 45 gram(s) - 1 aretha by Topical route 2 times per day for 10 day(s) Refill: 0 External Use as directed , Notes to Pharmacist: Medication Inactivated on 02/09/2019 3:36:00 PMLipitor 20 MG Tablet 1 tablet po once a day Oral once a day Zithromax 500 MG Tablet Zithromax Dispense: 5 tab(s) - 1 tablet by Oral route 1 time per day for 5 day(s) Refill: 0 Oral Use as directed , Notes to Pharmacist: Medication Inactivated on 05/12/2019 8:39:00 AMAcyclovir 800 MG Tablet acyclovir Dispense: 1 Tablet - by Oral route 1 time per day Refill: 0 Oral Use as directed Fluticasone Propionate 50 MCG/ACT Suspension fluticasone propionate Dispense: 1 Bottle - inhale 2 sprays (100 mcg) in each nostril by intranasal route once daily Refill: 0 Nasal Use as directed Taking Triamcinolone Acetonide 0.1 % Cream triamcinolone acetonide Dispense: 1 Tube - Use 1 Aretha by Topical route 2 times per day PRN Refill: 1 External as directed Taking Acyclovir 5 % Ointment acyclovir Dispense: 1 Tube - 1 aretha by Topical route 5 times per day for 7 day(s) Refill: 0 External Use as directed , Notes to Pharmacist: Medication Inactivated on 07/18/2017 9:18:00 AMTaking Diclofenac Sodium 75 MG Tablet Delayed Release diclofenac sodium Dispense: 60 tab(s) - 1 tablet by Oral route 2 times per day Refill: 3 Oral Use as directed Taking Silvadene 1 % Cream Silvadene Dispense: 50 gram(s) - 1 aretha by Topical route 2 times per day Refill: 0 External Use as directed Taking Lisinopril 20 MG Tablet 1 tablet po qd Oral Taking Diclofenac Potassium 50 MG Tablet diclofenac potassium Dispense: 60 tab(s) - 1 tablet by Oral route 2 times per day Refill: 3 Oral as directed Taking hydroCHLOROthiazide 12.5 MG Tablet once a day Oral once a day Taking Cyclobenzaprine HCl 10 MG Tablet cyclobenzaprine Dispense: 60 tab(s) - take 1 tablet (10 mg) by oral route 2 times per day PRN Refill: 3 Oral as directed Taking hydroCHLOROthiazide 12.5 MG Tablet 1 tablet po once a day Oral once a day Taking Verona-3 1000 MG Capsule omega-3 fatty acids Dispense: 1 Bottle - 1 Capsule by Oral route 3 times per day Refill: 3 Oral Use as directed Taking Vistaril 25 MG Capsule Vistaril Dispense: 60 cap(s) - 1 capsule by Oral route 4 times per day PRN Oral Use as directed Taking Fenofibrate 160 MG Tablet fenofibrate Dispense: 30 tablet(s) - take 1 tablet (160 mg) by oral route once daily Refill: 3 Oral as directed Taking Alendronate Sodium 35 MG Tablet 1 tablet po once a week Oral once a week Taking Claritin 10 MG Tablet Claritin Dispense: 30 tablet(s) - take 1 tablet (10 mg) by oral route once daily Oral as directed Taking Calcium 600 + Minerals 600- 200 MG-UNIT Tablet 1 tablet po once a day Oral once a day Taking Clotrimazole-Betamethasone 1-0.05 % Cream Lotrisone Dispense: 45 gram(s) - 1 aretha by Topical route 2 times per day for 10 day(s) Refill: 0 External Use as directed , Notes to Pharmacist: Medication Inactivated on 02/09/2019 3:36:00 PMTaking Lipitor 20 MG Tablet 1 tablet po once a day Oral once a day Taking Zithromax 500 MG Tablet Zithromax Dispense: 5 tab(s) - 1 tablet by Oral route 1 time per day for 5 day(s) Refill: 0 Oral Use as directed , Notes to Pharmacist: Medication Inactivated on 05/12/2019 8:39:00 AMTaking Acyclovir 800 MG Tablet acyclovir Dispense: 1 Tablet - by Oral route 1 time per day Refill: 0 Oral Use as directed Taking Fluticasone Propionate 50 MCG/ACT Suspension fluticasone propionate Dispense: 1 Bottle - inhale 2 sprays (100 mcg) in each nostril by intranasal route once daily Refill: 0 Nasal Use as directed * Allergies: N .K.D.A. * * Date:
--- OUTSIDE RECORDS SUMMARY | 2025-02-14 09:00 | XMS_ITS | Encounter Summary ---
Author Organization [employer] Address [address] [place] [address] 7 [place] [address] Care Team Providers Care Associate Chief Nurse Name Role Phone Erica Poole MD Primary Care Provider Reason for Visit * Reason Comments Hypertension Encounter Details Date Type Department Care Team ([facility] Contact Info) Description 02/14/2025 9:00 AM EDT Office Visit [facility] MED & PEDS [address] [place] [address] Erica Poole MD [address] [place] [address] White coat syndrome with diagnosis of hypertension (Primary Dx) Social History Tobacco Use Types Packs/Day Years Used Date Smoking Tobacco: Never Passive Smoke Exposure: Never Smokeless Tobacco: Never Alcohol Use Standard Drinks/Week Comments Never 0 (1 standard drink = 0.6 oz pur e alcohol) Depression Answer Date Recorded Patient Health Questionnaire-9 Score 0 02/14/2025 Patient Health Questionnaire-9 Score 0 02/14/2025 Last PHQ-9: Questionnaire Data Not on file 0 02/14/2025 Housing Stability Answer Date Recorded What is your housing situation today? I have marlin coombs 11/11/[address] you li ve. Do you have problems with any of the following? None of the above 11/11/2024 Food Insecurity Answer Date Recorded Within the past 12 months, y ou worried that your food would run out before you got money to buy more: Never True 11/11/2024 Within the past 12 months,th e food you bought just didn't last and you didn't have enough money to get more: Never True 07/2024 Transportation Answer Date Recorded In the past 12 months, has l ack of transportation kept you from medical appts, meetings, work or from getting things needed for daily living? No 11/11/2024 Utilities Answer Date Recorded In the past 12 months, has t he electric, gas, oil or water company threatened to shut off services in your home? No 11/11/2024 Depression Answer Date Recorded Patient Health Questionnaire-2 Score 0 02/14/2025 Internet Access Answer Date Recorded Internet Access Q1 Yes 11/11/2024 Internet Access Q2 Not on file 11/11/2024 Comments Unknown Sex and Gender Information Value Date Recorded Sex Assigned at Female 04/11/2022 10:39 AM EDT Legal Sex Female 10:39 AM EDT Gender Identity Female 04/11/2022 10:39 AM EDT Sexual Orientation Choose not to disclose 2021 10:39 AM EDT documented as of this encounter Last Filed Vital Signs Vital Sign Reading Time Taken Comments Blood Pressure 156/100 02/14/2025 9:17 AM EDT Pulse 76 02/14/2025 9:03 AM EDT Temperature 36.3 C (97.4 F) 02/14/2025 9:03 AM EDT Respiratory Rate 20 02/14/2025 9:03 AM EDT Oxygen Saturation 98% 02/14/2025 9:03 AM EDT Inhaled Oxygen Concentration - - Weight 85.1 kg (187 lb 9.6 oz) 02/14/2025 9:03 A M EDT Height 163 cm (5' 4.17 ) 02/14/2025 9:03 AM EDT Body Mass Index 32.03 02/14/2025 9:03 AM EDT documented in this encounter Functional Status * Over the past 2 weeks, how often have you been bothered by any of the following problems? Question Answer Date of Assessment Author Patient Health Questionnaire -2 Score 0 02/14/2025 9:19 AM EDT Erica Poole MD * Little interest or pleasure in doing things Answer Date of Assessment Author Not at all 02/14/2025 9:19 AM EDT Will Poole MD * Feeling down, depressed, or hopeless Answer Date of Assessment Author Not at all 02/14/2025 9:19 AM Will Bonilla MD * Trouble falling or staying asleep, or sleeping too much Answer Date of Assessment Author Not at all 02/14/2025 9:19 AM Will Bonilla MD * Feeling tired or having little energy Answer Date of Assessment Author Not at all 02/14/2025 9:19 AM Will Bonilla MD * Poor appetite or overeating Answer Date of Assessment Author Not at all 02/14/2025 9:19 AM Will Bonilla MD * Feeling bad about yourself - or that you are a failure or have let yourself or your family down Answer Date of Assessment Author Not at all 02/14/2025 9:19 AM Will Bonilla MD * Trouble concentrating on things, such as reading the newspaper or watching television Answer Date of Assessment Author Not at all 02/14/2025 9:19 AM Will Bonilla MD * Moving or speaking so slowly that other people could have noticed? Or the opposite - being so fidgety or restless that you have been moving around a lot more than usual. Answer Date of Assessment Author Not at all 02/14/2025 9:19 AM Will Bonilla MD * Thoughts that you would be better off or hurting yourself in some way Answer Date of Assessment Author Not at all 02/14/2025 9:19 AM Will Bonilla MD * Patient Health Questionnaire-9 Score Answer Date of Assessment Author 0 02/14/2025 9:19 AM Will Bonilla MD documented as of this encounter Plan of Treatment Upcoming Encounters Date Type Department Care Team (Late st Contact Info) Description 02/21/2025 9:30 AM EDT Clinical Support [facility] [address] [place] [address] documented as of this encounter Visit Diagnoses Diagnosis White coat syndrome with diagnosis of hypertension- Primary documented in this encounter Additional Health Concerns Assessment Noted Time PHQ-9 Depression Total Score: 0 02/15/20 25 9:19 AM EDT documented as of this encounter Care Teams Associate Chief Nurse Relationship Specialty Start Date End Date Erica Poole MD [address] [place] [address] PCP - General Family Medicine 06/07/21 ROULA Neal-[address] [phone] Nurse Practitioner Gastroenterology 02/10/23 documented as of this encounter
--- OUTSIDE RECORDS SUMMARY | 2025-02-14 10:32 | XMS_ITS | Encounter Summary ---
Author Organization [employer] Address [address] [facility] 7t [place] [address] Care Team Providers Care Case Repairer Name Role Phone Erica Poole MD Primary Care Provider [phone] Reason for Visit * Reason Comments Med Refill Encounter Details Date Type Department Care Team ([facility] Contact Info) Description 07/09/2024 Refill [facility]S [address] [place] [address] Erica Poole MD [address] [place] [address] Social History Tobacco Use Types Packs/Day Years [...] Description 02/21/2025 9:30 AM EDT Clinical Support [facility] [address] [place] [address] documented as of this encounter Visit Diagnoses Not on filedocumented in this encounter Additional Health Concerns Assessment Noted Time PHQ-9 Depression Total Score: 0 07/21/19 24 2:48 PM EST documented as of this encounter Care Teams Case Repairer Relationship Specialty Start Date End Date Erica Poole MD [address] [place] [address] PCP - General Family Medicine 06/07/21 ROULA Neal-[address] [address] Nurse Practitioner Gastroenterology 02/10/23 documented as of this encounter
--- OUTSIDE RECORDS SUMMARY | 2025-02-14 10:32 | XMS_ITS | Clinical Summary ---
Author Organization [employer] Address [address] [facility] 7t [place] [address] Care Team Providers Care Secretary Board Of Commissioners Name Role Phone Erica Poole MD Primary Care Provider [phone] Allergies No known active allergies Medications cetirizine (ZyrTEC) 10 MG tablet Take 1 tablet by mouth at bed time. 2 Active hydroquinone 4 % cream 3 Active fenofibrate (Tricor) 48 MG tablet Take 1 tablet (48 mg) by mouth Once per day. 90 tablet 1 5 Active atorvastatin (Lipitor) 40 MG tablet Take 1 tablet (40 mg) by mouth Once per day. 90 tablet 1 5 Active olmesartan (Benicar) 20 MG tablet Take 1 tablet (20 mg) by mouth Once per day. 90 tablet 1 5 Active lisinopril 20 MG tablet Take 1 tablet (20 mg) by mouth Once per day. 90 tablet 1 5 02/15/20 25 Discontinu ed(Therapy completed) Active Problems Problem Noted Date Diagnosed Date Intermittent palpitations 11/11/2024 Assessment & Plan (11/11/2024 4:45 PM EDT): Patient has a history of cardiac symptoms including chest pain, shortness of breath, and palpitations. Last stress test and echocardiogram were normal. Echocardiogram showed slight left ventricular thickening, likely related to hypertension, but overall cardiac function is good with no valvular insufficiency. Plan: - Placed new referral to cardiology for evaluation of intermittent palpitations Other specified noninflammatory disorders of cer vix uteri 02/27/2024 Assessment & Plan (02/27/2024 9:50 AM EDT): Visible strawberry cervix, ordering lab work for STI and prescribing Flagyl. Relevant Medications Metronidazole (Flagyl) 500 mg tablet Cubital tunnel syndrome on right 02/21/2024 Assessment [...] of elbow, right 08/30/2023 Assessment & Plan (11/11/2024 4:44 PM EDT): Patient reports previous therapy for arm/elbow pain was not particularly helpful. She is currently performing daily exercises with a ball for her elbow. Plan: - Continue home exercises for elbow as tolerated - Patient declined referral for additional physical therapy at this time - resend to ortho Assessment & Plan (02/21/2024 11:16 AM EDT): [...] Xray referral for the left toe pain White coat syndrome with diagnosis of hypertensi on 06/30/2022 Assessment & Plan (11/11/2024 4:43 PM EDT): Patient's blood pressure is currently elevated in the office. Home blood pressure readings are reported to be around 133/80-87. Given the patient's ethnicity and age, target blood pressure should be less than 140/90 mmHg. Current medication regimen includes lisinopril 20 mg. Plan: - Continue lisinopril 20 mg (dose and frequency not specified in transcript) - Encourage home blood pressure monitoring, aiming for less than 140/90 mmHg - Advised patient to reduce salt intake - Follow up in 3 months for blood pressure reassessment Assessment & Plan (02/21/2024 11:14 AM EDT): [...] crm. Mixed hyperlipidemia 06/30/2022 Assessment & Plan (11/11/2024 4:43 PM EDT): Patient has a history of hyperlipidemia, currently managed with Lipitor and fenofibrate. Recent triglyceride levels were noted to be high, though improved from 2 years ago. Plan: - Continue Lipitor (dose and frequency not specified in transcript) - Continue fenofibrate (dose and frequency not specified in transcript) - Order comprehensive metabolic panel and lipid panel - Advised patient to reduce intake of sweets and increase exercise as tolerated Assessment & Plan (04/14/2023 2:33 PM EDT): -Will send labs: Lipid Panel. Assessment & Plan (12/05/2022 11:02 AM EDT): Will send lab to recheck levels. Class 1 obesity due to exces s calories with serious comorbidity and body mass index (BMI) of 32.0 to 32.9 in adult 06/30/2022 Assessment & Plan (11/11/2024 4:43 PM EDT): Discussed calorie deficit, recommended reduction of 20-30% of maintenance calories; detective lieutenant referral offered. Recommended to decrease soda and sugary beverage consumption. Recommended at least 20 g per meal of protein to assist with satiety. Recommended at least 150 min/week of moderate intensity exercise. Resolved Problems Problem Noted Date Diagnosed Date Resolved Date Cervical cancer screening 02/27/2024 Assessment & Plan (02/27/2024 9:51 AM EDT): 63 y.o. here for cervical cancer screening. Will continue monitoring following ASCCP guidelines. RUQ pain 12/05/2022 11/11/2024 Assessment & Plan (12/05/2022 11:03 AM EDT): Patient with intermittent RUQ pain. Will send for abdominal ultrasound for further evaluation. Encounters Date Type Department Care Team Description 02/14/2025 9:00 AM EDT Office Visit [facility] [address] [place] [address] Erica Poole MD White coat syndrome with diagnosis of hypertension (Primary Dx) 02/14/2025 Travel 02/11/2025 Telephone [facility] [address] [place] [address] Mekhi Laura MA chart prep 02/06/2025 Patient Outreach [facility] [address] [place] [address] Erica Poole MD Pre-visit Planning (SDOH screening completed on 11/11/24 ) from Last 3 Months Immunizations Immunization Administration Dates Next Due Pfizer Covid-19 Vaccine [...] housing situation today? I have marlin corin 11/11/[address] you li [...] Mass Index 32.03 02/14/2025 9:03 AM EDT Plan of Treatment Upcoming Encounters Date Type Department Care Team (Late st Contact Info) Description 02/21/2025 9:30 AM EDT Clinical Support [facility] [address] [place] [address] Health Maintenance Due Date Last Done Comments CT Colonography 1959 Dental X-Ray: Full Mouth 1959 FIT DNA/Cologuard 1959 FIT 1960 FOBT 1960 Sigmoidoscopy 1960 DTaP/Tdap/Td Vaccines (1 - Tdap) 10/02/1978 COVID-19 Vaccine ( - season) 2025 06/10/2021, 10/23/2020, 09/30/2020 Influenza Vaccine (#1) 2025 Dental Oral Exam 03/09/2025 09/05/2024, , 02/21/2023 Dental Prophylaxis 03/09/2025 09/05/2024, 0 03/11/2024, 02/21/2023, Additional history exists Dental X-Ray: Bitewings 03/12/2025 03/11/2024, 02/21 Colonoscopy 09/03/2025 09/03/2020 Colorectal Cancer Screening 09/03/2025 Mammogram 10/17/2025 10/17/2024, 12/27/2022 Alcohol/Substance Use Screening 11/11/2025 11/11/2024 Pneumococcal Vaccine: 50+ Years (1 of 1 - PCV) 11/11/2025 Postponed from 10/02/2009 (Patient Refused) SDOH Screening 11/11/2025 11/11/2024 Zoster Vaccines (1 of 2) 11/11/2025 Pos tponed from 10/02/2009 (Patient Refused) Depression Screening 02/14/2026 02/14/2025, 02/15/20 Tobacco Screening 02/14/2026 02/14/2025 Lipid Panel 02/20/2029 02/21/2024, 02/0 12/2023, 02/02/2023, [...] patient's age to complete this topic Meningococcal B Vaccine Aged Out No l onger eligible based on patient's age to complete [...] Procedure Name Priority Date/Time Associated Diagnosis Comments BI MAMMOGRAM SCREENING TOMOSYNTHESIS BILATERAL Routine 10/17/2024 12:30 PM EDT PROPHYLAXIS - ADULT Routine 09/05/2024 1 :00 PM EDT PERIODIC ORAL EVALUATION - ESTABLISHED PATIENT Routine 09/05/2024 1:00 PM EDT BITEWINGS - 4 RADIOGRAPHIC IMAGES Routine 03/11/2024 2:00 PM EDT THINPREP IMAGING PAP AND HPV MRNA E6/E7 Routine 02/27/2024 9:36 AM EDT LIPID PANEL, STANDARD Routine 02/21/2024 8:53 AM EDT White coat syndrome with diagnosis of hypertension ZZZ HISTORICAL HEPATITIS C AB W/REFL TO HCV RNA, QN, PCR Routine 07/23/2021 9:06 AM EST HM COLONOSCOPY Routine 09/03/2020 from Last 3 Months or Most Recently Relevant to Health Maintenance Results * BI Mammogram Screening Tomosynthesis Bilateral (10/17/2024 12:30 PM EDT) Anatomical Region Laterality Modality Breast Bilateral Mammography 10/17/2024 12:3 0 PM EDT Narrative 10/25/2024 3:17 PM EDT Félix [facility] [address] [place] [address] Mammography Report Signed Patient: Bella Dorsey MR#: [id number] : 1960 Acct:[id number] Age/Sex: 64 / F ADM Date: 10/17/24 Loc: .MAMMO Attending Dr: Erica Poole MD Ordering Physician: Erica Poole MD Results: 1Nega tive Date of Service: 10/17/24 Follow Up: 1 Year From Orig ina Mammogram Procedure(s): MM tomosynthesis screening BI Accession Number(s): [id number] cc: Erica Poole MD EXAMINATION: MM SCREENING DIGITAL BREAST TOMOSYNTHESIS, BILATERAL CLINICAL INFORMATION: Screening. Asymptomatic. COMPARISON: Mammography: Comparison is made with available priors TECHNIQUE: Digital breast mammography with tomosynthesis is performed in both the craniocaudal and mediolateral oblique views along with computer-aided detection (CAD). FINDINGS: The breasts are almost entirely fatty (ACR BI-RADS breast composition Category a). There are no significant masses, abnormal calcifications, or other abnormalities. MM/MM tomosynthesis screening BI IMPRESSION: No mammographic evidence of malignancy. ASSESSMENT: BI-RADS BI-RADS 1 - Negative RECOMMENDATION: Routine annual mammography screening. 1 year F/U This examination should not preclude the clinical evaluation of a suspicious palpable abnormality. This patient's information was entered into a reminder system with a target due date for their next mammogram. Electronically signed by: Gloria Brooks DO 10/25/2024 03:14 PM EDT Dictated By: Gloria Brooks DO Signed By: <Electronically signed by Gloria Brooks DO in OV> 10/25/24 1514 DD/ 1230 TD/TT: 10/17/24 1250 Analytical Technician: Procedure Note Katarinater, Image - 10/28/2024 [facility] [address] [place] [address] Mammography Report Signed Patient: Flo Dorsey#: [id number] : 1960Acct:[id number] Age/Sex: 64 / FADM Date: 10/17/24 Loc: HO.MAMMO Attending Dr: Erica Poole MD Ordering Physician: Erica Poole MDResults: 1Nega tive Date of Service: 10/17/24Follow Up: 1 Year From Orig inal Mammogram Procedure(s): MM tomosynthesis screening BI Accession Number(s): [id number] cc: Erica Poole MD EXAMINATION: MM SCREENING DIGITAL BREAST TOMOSYNTHESIS, BILATERAL CLINICAL INFORMATION: Screening. Asymptomatic. COMPARISON: Mammography: Comparison is made with available priors TECHNIQUE: Digital breast mammography with tomosynthesis is performed in both the craniocaudal and mediolateral oblique views along with computer-aided detection (CAD). FINDINGS: The breasts are almost entirely fatty (ACR BI-RADS breast composition Category a). There are no significant masses, abnormal calcifications, or other abnormalities. MM/MM tomosynthesis screening BI IMPRESSION: No mammographic evidence of malignancy. ASSESSMENT: BI-RADS BI-RADS 1 - Negative RECOMMENDATION: Routine annual mammography screening. 1 year F/U This examination should not preclude the clinical evaluation of a suspicious palpable abnormality. This patient's information was entered into a reminder system with a target due date for their next mammogram. Electronically signed by: Gloria Brooks DO 10/25/2024 03:14 PM EDT Dictated By: Gloira Brooks DO Signed By: <Electronically signed by Gloria Brooks DO in OV> 10/25/24 1514 DD/ 1230 TD/TT: 10/17/24 1250 Analytical Technician: us Erica Poole MD IMG BI PROCEDURES Edited Resu lt - Final * ThinPrep Imaging Pap and HPV mRNA E6/E7 (02/27/2024 9:36 AM EDT) HPV nRNA E6/E7 Not Detected Not Detected [facility] Comment:Methodology: Transcr iption-Mediated AmplificationThis assay detects E6/E7 viral messenger RNA (mRNA) from 14high-risk HPV types (16,18,31,33,35,39,45,51,52,56,58,59,66,68).Cervical sources are required for HPV testing.If a vaginal source from a patient who has had atotal hysterectomy with removal of cervix wassubmitted, please contact the testing laboratoryfor alternative testing options.For additional information, please refer tohttp://education.Medprex/faq/NWZ184p8(This link if provided for information/educational purposes only.)THIS TEST WAS PERFORMED AT:[facility] [address] [id number] MASON MD SOURCE: SEE NOTE [facility] Comment:None given Report Status: [facility] Clinical Information: SEE NOTE [facility] Comment:None given LMP: SEE NOTE [facility] Comment:NONE GIVEN Prev. PAP: SEE NOTE [facility] Comment:NONE GIVEN Prev. BX: SEE NOTE [facility] Comment:NONE GIVEN Statement Of Adequacy: SEE NOTE [facility] Comment:Satisfactory for claudia luation.Endocervical/transformation zone component absent. General Categorization: [facility] Interpretation/Result: SEE NOTE [facility] Comment:Cytology Results: Ne gative for intraepitheliallesion or malignancy. Cytology Comment SEE NOTE [facility] Comment:This Pap test has be en evaluated with computerassisted technology. Military Logistics Specialist: SEE NOTE [facility] Comment:SL, CT(ASCP)CT scree dary location: [place] [address] Review Military Logistics Specialist: [facility] Pathologist [facility] PAP Infection [facility] See Note SEE NOTE [facility] Comment:EXPLANATORY NOTE:The Pap is a screening test for cervical cancer. It isnot a diagnostic test and is subject to false negativeand false positive results. It is most reliable when asatisfactory sample, regularly obtained, is submittedwith relevant clinical findings and history, and whenthe Pap result is evaluated along with historic andcurrent clinical information. 02/27/2024 9:36 AM EDT 02/27/2024 2:57 PM EDT Narrative [facility] - 03/05/2024 12:44 PM EDT SEE SCANNED RESULTS IN EMR us Erica Poole MD LAB PATHOLOGY ORDERABLES Vianey bradshaw Result [facility] [address] [place] [address] [phone] * (ABNORMAL) Lipid Panel, Standard (02/21/2024 8:53 AM EDT) Triglycerides 193(H) <150 mg/dL [facility] Comment:Desirable Triglyceri de: less than 150 mg/dLBorderline High Triglyceride 150-199 mg/dLHigh Triglyceride: 200-499 mg/dLVery High Triglyceride: greater than or equal to 5OO mg/dL Cholesterol 185 <200 mg/dL [facility] Comment:Desirable Cholestero l: less than 200 mg/dLBorderline High Cholesterol: 200-239 mg/dLHigh Cholesterol: greater than 239 mg/dL LDL Cholesterol Calculated 110(H) <100 mg/dL [facility] Comment:Desirable LDL: less than 100 mg/dLNear Optimal/Above Optimal LDL: 110- 129 mg/dLBorderline High LDL: 130-159 mg/dLHigh LDL: 160-189 mg/dLVery High LDL: greater than or equal to 190 mg/dL HDL Cholesterol 37(L) >40 mg/dL [facility] Comment:Desirable HDL: great er than 40 mg/dL Note: This HDL assay may give artificially low results in patients with liver disease. Blood Venous blood specimen / Unknown 02/21/2024 8:53 AM EDT 02/21/2024 1:46 PM EDT Erica Poole MD LAB BLOOD ORDERABLES Final Re sult [facility] [address] [place] [address] [phone] * HEPATITIS C AB W/REFL TO HCV RNA, QN, PCR (07/23/2021 9:06 AM EST) HEPATITIS C ANTIBODY NON-REACT CLOTILDE NON-REACT CLOTILDE [facility] INDEX 0.01 <1.00 [facility] Comment: HCV antibody was non-reactive. There is no laboratory evidence of HCV infection. In most cases, no further action is required. However, if recent HCV exposure is suspected, a test for HCV RNA (test code 43280) is suggested. For additional information please refer to http://education.Medprex/faq/JNP77l0 (This link is being provided for informational/ educational purposes only.) 07/23/2021 9:0 6 AM EST Erica Poole MD HISTORICAL/NON ORDERABLE LABS Final Result Performing Organization Address City/[facility]/ZIP Co de Phone Number [facility] [address] [place] [address], * (ABNORMAL) Colonoscopy (09/03/2020) Colonoscopy Abnormal(A ) Normal Narrative AlysaLina rg - 09/03/2020 Right colonic diverticulosis, multiple colonic polyps. Rpt colonoscopy in 5 yrs Historical Provider HEALTH MAINTENANCE Edited Result - Final from Last 3 Months or Most Recently Relevant to Health Maintenance Insurance [facility] MEDICARE ADVANTAGE HMO DENTAL - HSN PARTIAL (MEDICAID) [facility] Care Teams Secretary Board Of Commissioners Relationship Specialty Start Date End Date Erica Poole MD [address] [place] [address] PCP - General Family Medicine 06/07/21 ROULA Neal-[address] [address] Nurse Practitioner Gastroenterology 02/10/23
--- OUTSIDE RECORDS SUMMARY | 2025-02-14 10:32 | XMS_ITS | Encounter Summary ---
Author Organization [email or web address] Address [address] [facility] 7t [place] [address] Care Team Providers Care Cattle Broker Name Role Phone Erica Poole MD Primary Care Provider [phone] Encounter Details Date Type Department Care Team (Latest Contact Info) Description 02/14/2025 Travel Social History Tobacco Use Types Packs/Day Years [...] AM EDT documented as of this encounter Functional Status * Over the past 2 weeks, how often have you been bothered by any of the following problems? Question Answer Date of Assessment Author Patient Health Questionnaire -2 Score 0 02/14/2025 9:19 AM Erica Bonilla MD * Little interest or pleasure in doing things Answer Date of Assessment Author Not at all 02/14/2025 9:19 AM Will Bonilla MD * Feeling down, depressed, or hopeless [...] 9:19 AM EDT Will Poole MD * Thoughts that you would be better off or hurting yourself in some way Answer Date of Assessment Author Not at all 02/14/2025 9:19 AM EDT Will Poole MD * Patient Health Questionnaire-9 Score Answer Date of Assessment Author 0 02/14/2025 9:19 AM EDT Will Poole MD documented as of this encounter Plan of Treatment Upcoming Encounters Date Type Department Care Team (Late st Contact Info) Description 02/21/2025 9:30 AM EDT Clinical Support [facility] [address] [place] [address] documented as of this encounter Visit Diagnoses Not on filedocumented in this encounter Additional Health Concerns Assessment Noted Time PHQ-9 Depression Total Score: 0 02/15/20 25 9:19 AM EDT documented as of this encounter Care Teams Cattle Broker Relationship Specialty Start Date End Date Erica Poole MD [address] [place] [phone] PCP - General Family Medicine 06/07/21 ROULA Neal-[address] [address] Nurse Practitioner Gastroenterology 02/10/23 documented as of this encounter
--- OUTSIDE RECORDS SUMMARY | 2025-02-14 10:32 | XMS_ITS | Encounter Summary ---
Author Organization [employer] Address [address] [facility] 7 [place] [address] Care Team Providers Care Glue Maker Name Role Phone Erica Poole MD Primary Care Provider [phone] Reason for Visit * Reason Onset Date Comments chart prep 02/11/2025 Encounter Details Date Type Department Care Team ([facility] st Contact Info) Description 02/11/[address] [facility] [address] [place] [address] ValentínClio, [place] chart prep Social History Tobacco Use Types Packs/Day Years [...] Recorded Patient Health Questionnaire-2 Score 0 07/21/2023 Internet Access Answer Date Recorded Internet Access Q1 Yes 11/11/2024 Internet Access Q2 Not on file 11/11/2024 Comments Unknown Sex and Gender Information Value Date Recorded Sex Assigned at Female 04/11/2022 10:39 AM EDT Legal Sex Female 10:39 AM EDT Gender Identity Female 04/11/2022 10:39 AM EDT Sexual Orientation Choose not to disclose 2021 10:39 AM EDT documented as of this encounter Miscellaneous Notes * Telephone Encounter - Mekhi Laura MA - 02/11/2025 12:41 PM EDT Chart Prep Labs: not done Images: done Referrals: complete Vaccines due: Covid, Flu, and Tdap Screenings: Overdue care gaps: PHQ-9 documented in this encounter Plan of Treatment Upcoming Encounters Date Type Department Care Team (Late st Contact Info) Description 02/21/2025 9:30 AM EDT Clinical Support [facility] [address] [place] [address] documented as of this encounter Visit Diagnoses Not on filedocumented in this encounter Additional Health Concerns Assessment Noted Time PHQ-9 Depression Total Score: 0 07/21/19 24 2:48 PM EST documented as of this encounter Care Teams Glue Maker Relationship Specialty Start Date End Date Erica Poole MD [address] [place] [address] PCP - General Family Medicine 06/07/21 ROULA Neal-[address] [address] Nurse Practitioner Gastroenterology 02/10/23 documented as of this encounter
--- OUTSIDE RECORDS SUMMARY | 2025-02-14 10:33 | XMS_ITS | Encounter Summary ---
Author Organization [employer] Address [address] [facility] 7t [place] [address] Care Team Providers Care Pickling Solution Maker Name Role Phone Erica Poole MD Primary Care Provider [phone] Encounter Details Date Type Department Care Team ([facility] st Contact Info) Description 04/27/2023 Abstract [facility] [address] [place] [address] Erica Poole MD [address] [place] [address] Social History Tobacco Use Types Packs/Day Years [...] Description 02/21/2025 9:30 AM EDT Clinical Support [facility] [address] [place] [address] documented as of this encounter Visit Diagnoses Not on filedocumented in this encounter Additional Health Concerns Assessment Noted Time PHQ-9 Depression Total Score: 0 06/30/19 23 3:11 PM EST documented as of this encounter Care Teams Pickling Solution Maker Relationship Specialty Start Date End Date Erica Poole MD [address] [place] [address] PCP - General Family Medicine 06/07/21 ROULA Neal-[address] [address] Nurse Practitioner Gastroenterology 02/10/23 documented as of this encounter
--- OUTSIDE RECORDS SUMMARY | 2025-02-14 10:33 | XMS_ITS | Patient Health Record ---
Author Organization [facility] Address [address] [place] [address] Care Team Providers Care Communication Arts Lecturer Name Role Phone Kasandra Kirkland Unavailable Unavailable Allergies No Known Allergies Reason For Referral No Information Medications Medication SIG (Take, Route, Frequency, Duration) Notes Start Date End Date Status Acyclovir 5 % Ointment acyclovir Dispens e: 1 Tube - 1 aretha by Topical route 5 times per day for 7 day(s) Refill: 0 External Use as directed Medication Inactivated on 07/18/2017 9:18:00 AM 07/12/2017 Active Triamcinolone Acetonide 0.1 % Cream triamcinolone acetonide Dispense: 1 Tube - Use 1 Aretha by Topical route 2 times per day PRN Refill: 1 External as directed 07/02/2020 Active Fenofibrate 160 MG Tablet fenofibrate Dispense: 30 tablet(s) - take 1 tablet (160 mg) by oral route once daily Refill: 3 Oral as directed 07/02/2020 Active Fluticasone Propionate 50 MCG/ACT Suspension fluticasone propionate Dispense: 1 Bottle - inhale 2 sprays (100 mcg) in each nostril by intranasal route once daily Refill: 0 Nasal Use as directed 05/07/2019 Active Alendronate Sodium 35 MG Tablet 1 tablet po once a week Oral once a week 07/02/2020 Active Cyclobenzaprine HCl 10 MG Tablet cyclobenzaprine Dispense: 60 tab(s) - take 1 tablet (10 mg) by oral route 2 times per day PRN Refill: 3 Oral as directed 07/02/2020 Active Acyclovir 800 MG Tablet acyclovir Dispen se: 1 Tablet - by Oral route 1 time per day Refill: 0 Oral Use as directed 07/12/2017 Active Lisinopril 20 MG Tablet 1 tablet po qd Oral 2020 Active Diclofenac Sodium 75 MG Tablet Delayed Release diclofenac sodium Dispense: 60 tab(s) - 1 tablet by Oral route 2 times per day Refill: 3 Oral Use as directed 05/07/2019 Active Silvadene 1 % Cream Silvadene Dispense: 50 gram(s) - 1 aretha by Topical route 2 times per day Refill: 0 External Use as directed 10/10/2018 Active Baskin-3 1000 MG Capsule omega-3 fatty ac ids Dispense: 1 Bottle - 1 Capsule by Oral route 3 times per day Refill: 3 Oral Use as directed 05/07/2019 Active Clotrimazole-Betamethaso ne 1-0.05 % Cream Lotrisone Dispense: 45 gram(s) - 1 aretha by Topical route 2 times per day for 10 day(s) Refill: 0 External Use as directed Medication Inactivated on 02/09/2019 3:36:00 PM 01/30/2019 Active Claritin 10 MG Tablet Claritin Dispense: 30 tablet(s) - take 1 tablet (10 mg) by oral route once daily Oral as directed 07/02/2020 Active Calcium 600 + Minerals 600-200 MG-UNIT Tablet 1 tablet po once a day Oral once a day 07/02/2020 Active Lipitor 20 MG Tablet 1 tablet po once a day Oral once a day 07/02/2020 Active hydroCHLOROthiazide 12.5 MG Tablet once a day Oral once a day 09/10/2019 Active Diclofenac Potassium 50 MG Tablet diclofenac potassium Dispense: 60 tab(s) - 1 tablet by Oral route 2 times per day Refill: 3 Oral as directed 07/02/2020 Active Vistaril 25 MG Capsule Vistaril Dispense : 60 cap(s) - 1 capsule by Oral route 4 times per day PRN Oral Use as directed 10/02/2017 Active Zithromax 500 MG Tablet Zithromax Dispen [...] was one cups per day, smoking status Problems Problem Type SNOMED Code ICD Code Onset Dates Problem Status W/U Status Risk Notes Problem Hypothyroidism (51075563) Hypothyroidism, unspecified (E03.9) 2015 Active confirmed Type: Diagnosis; Confidentiality Level: 1; Problem Vitamin D deficiency (90153659) Vitamin D deficiency, unspecified (E55.9) 2017 Active confirmed Type: Diagnosis; Confidentiality Level: 1; Problem Obesity due to excess calories (154004587) Other obesity due to excess calories (E66.09) 2016 Active confirmed Type: Diagnosis; Confidentiality Level: 1; Problem Mixed hyperlipidemia (967960877) Mixed hyperlipidemia (E78.2) 2016 Active confirmed Type: Diagnosis; Confidentiality Level: 1; Problem 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 Active confirmed Type: Diagnosis; Confidentiality Level: 1; Problem Essential hypertension (94851127) Essential (primary) hypertension (I10) 2017 Active confirmed Type: Diagnosis; Confidentiality Level: 1; Problem Hypertensive heart disease without congestive heart failure (08419885) Hypertensive heart disease without heart failure (I11.9) 2015 Active confirmed Type: Diagnosis; Confidentiality Level: 1; Problem Melena (4297020) Melena (K92.1) 2018 Active confirmed Type: Diagnosis; Confidentiality Level: 1; Problem Calcaneal spur (56138254) Calcaneal spur, unspecified foot (M77.30) 2016 Active confirmed Type: Diagnosis; Confidentiality Level: 1; Problem Age-related osteoporosis (690652786) Age-related osteoporosis without current pathological fracture (M81.0) 2016 Active confirmed Type: Diagnosis; Confidentiality Level: 1; Problem Disorder of bone (26225589) Other specified disorders of bone density and structure, multiple sites (M85.89) 2017 Active confirmed Type: Diagnosis; Confidentiality Level: 1; Problem Osteochondropathy (81934058) Disorder of bone density and structure, unspecified (M85.9) 2019 Active confirmed Problem Pelvic and perineal pain (488189771) Pelvic and perineal pain (R10.2) 2015 Active confirmed Type: Diagnosis; Confidentiality Level: 1; Problem Abnormal feces (807540351) Other fecal abnormalities (R19.5) 2020 Active confirmed Problem Hyperglycemia (74993045) Hyperglycemia, unspecified (R73.9) 2015 Active confirmed Type: Diagnosis; Confidentiality Level: 1; Problem Contusion of right hand (6190504812178467 8) Contusion of right hand, initial encounter (S60.221A) 2017 Active confirmed Type: Diagnosis; Confidentiality Level: 1; Problem Annual wellness visit (769258983250425) Encounter for other general examination (Z00.8) 2017 Active confirmed Type: Diagnosis; Confidentiality Level: 1; Problem Gynecological examination normal (314523890299161) Encounter for gynecological examination (general) (routine) without abnormal findings (Z01.419) 2016 Active confirmed Type: Diagnosis; Confidentiality Level: 1; Problem Preparation of medical certificate (374408835) Encounter for issue of other medical certificate (Z02.79) 2018 Active confirmed Type: Diagnosis; Confidentiality Level: 1; Problem Screening for malignant neoplasm of breast (584948472) Encounter for screening mammogram for malignant neoplasm of breast (Z12.31) 2015 Active confirmed Type: Diagnosis; Confidentiality Level: 1; Problem Diabetes mellitus screening (850738494) Encounter for screening for diabetes mellitus (Z13.1) 2017 Active confirmed Type: Diagnosis; Confidentiality Level: 1; Problem Lipid screening (890734393) Encounter for screening for lipoid disorders (Z13.220) 2017 Active confirmed Type: Diagnosis; Confidentiality Level: 1; Problem Endocrine/metabol ic screening (179490050) Encounter for screening for other suspected endocrine disorder (Z13.29) 2018 Active confirmed Type: Diagnosis; Confidentiality Level: 1; Problem Long-term current use of anticoagulant (943308029) 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 (Z79.01) 2018 Active confirmed Type: Diagnosis; Confidentiality Level: 1; Problem Noncompliance: dietary regimen (396469044) Patient's noncompliance with dietary regimen (Z91.11) 2016 Active confirmed Type: Diagnosis; Confidentiality Level: 1; Problem Medication regimen deficit (358776527) Patient's intentional underdosing of medication regimen for other reason (Z91.128) 2016 Active confirmed Type: Diagnosis; Confidentiality Level: 1; Problem Benign neoplasm of skin of right upper eyelid (disorder) (6332948607376408 6) Other benign neoplasm of skin of right upper eyelid, including canthus (D23.111) 2018 Active confirmed Type: Diagnosis; Confidentiality Level: 1; Problem Encounter for examination and observation for other specified reasons (Z04.89) 2020 Active confirmed Problem Herpesviral vesicular dermatitis (022542908) 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) 2017 Problem resolved confirmed Type: Diagnosis; Condition: Resolved; Confidentiality Level: 1; Problem Anemia (415569031) Anemia, unspecified (D64.9) 2017 Problem resolved confirmed Type: Diagnosis; Condition: Resolved; Confidentiality Level: 1; Plan Of Treatment No Information Insurance Providers Payer Name Payer Address Payer Phone Subscriber Number Group Number Insured Name Patient Relationship to Insured Coverage Start Date [place] [address] BARBIE Carvalho [phone] [id number] Bella De Paz Self - patient is the insured 0 [employer] [address] BARBIE Carvalho [phone] [id number] Bella De Paz Self - patient is the insured 9
--- OUTSIDE RECORDS SUMMARY | 2025-02-14 10:33 | XMS_ITS | Encounter Summary ---
Author Organization [facility] Address [address] [place] [address] [address] Care Team Providers Care Engineering Surveyor Name Role Phone Erica Poole MD Primary Care Provider [phone] Encounter Details Date Type Department Care Team (Latest Contact Info) Description 09/10/2021 Abstract [facility] CONVERSIONS Dental, Provider, DDS Social History Tobacco [...] Description 02/21/2025 9:30 AM EDT Clinical Support [facility] [address] [place] [address] documented as of this encounter Visit Diagnoses Not on filedocumented in this encounter Care Teams Engineering Surveyor Relationship Specialty Start Date End Date Erica Poole MD [address] [place] [id number] PCP - General Family Medicine 06/07/21 ROULA Neal-[address] [address] Nurse Practitioner Gastroenterology 02/10/23 documented as of this encounter
[2025-02-14 11:51] LABS: MANUAL DIFF FLAG NO
[2025-02-14 11:56] LABS: Hematocrit 38.3 % (37.0-47.0); Hemoglobin 13.2 g/dl (12.0-16.0); Imm Gran Abs Auto 0.02 X10*3/uL (0.00-0.03); Imm Gran Pct Auto 0.4 % (0.0-0.4); Lymphocytes Absolute Auto 1.7 X10*3/uL (1.2-4.9); Mean Corpuscular HGB Conc 34.5 g/dl (31.0-35.0); Mean Corpuscular Hemoglobin 29.3 pg (27.0-33.0); Mean Corpuscular Volume 85.1 fL (80.0-98.0); NRBC Abs Auto 0.000 X10*3/uL (0.0-0.012); NRBC Pct Auto 0.0 /100WBC (0.0-0.2); Platelet Count 341 X10*3/uL (160-400); Red Blood Count 4.50 X10*6/uL (4.20-5.50); White Blood Count 4.5 X10*3/uL (4.8-10.8)
[2025-02-14 11:57] LABS: Appearance Urine Clear; Glucose Urine UA Negative (Negative); PH 7.0 (5.0-9.0); Specific Gravity - Urine 1.010 (1.005-1.025); UMIC TRIGGER UA YES
[2025-02-14 12:25] LABS: Alanine Aminotransferase 23 U/L (0-31); Albumin Level 4.4 g/dL (3.5-5.0); Alkaline Phosphatase 92 U/L (39-117); Anion Gap 11 (12-20); Aspartate Amino Transferase 30 U/L (5-31); Blood Urea Nitrogen 12 mg/dL (9-16); Calcium 9.1 mg/dL (8.4-10.2); Carbon Dioxide 25 mmol/L (22-29); Chloride 109 mmol/L (96-108); Cholesterol 181 mg/dL (<200); Estimated Glomerular Filt Rate > 60; HDL Cholesterol 36 mg/dL (>40); Potassium 4.3 mmol/L (3.3-5.1); Sodium 141 mmol/L (135-145); Total Protein 7.0 g/dL (6.5-8.0); Triglycerides 279 mg/dL (<150)
== END 2025-02-14 09:43 | disposition home or self-care (01) ==
LOC: HO.CHCLDS 09:42
PROVIDERS: PCP Family Medicine; Visit Provider Family Medicine
DX: E66.811 Obesity, class 1 (principal); E66.09 Other obesity due to excess calories; Z68.32 Body mass index [BMI] 32.0-32.9, adult
CPT/HCPCS: 36415; 80053; 80061; 81001; 83525; 84443; 85025